=== PATIENT | female | born 1990 | race Caucasian/White ===

== ENCOUNTER 2019-12-18 16:15 | Outpatient (CLI) | payer MEDICAID ==
[~2019-12-18] VITALS: Ht 167.7 cm; Wt 95.7 kg
--- NOTE | 2019-12-18 16:15 | NUR ---
JASPREET GÓMEZ presented to unit via ambulation from home, accompanied by s/o, with c/o CRAMPING/ABD PAIN. JASPREET GÓMEZ weighed, gowned, voided, and to bed. EFHM and TOCO applied, VS taken. JASPREET GÓMEZ oriented to bed controls, call light, TV, heat, and A/C controls.
--- NOTE | 2019-12-18 16:18 | NUR ---
Dr henao at bedside. reviewing patient c/o and concerns. new orders received.
[2019-12-18 16:20] VITALS: BP 129/87
[2019-12-18] MEDS ORDERED: NS IV 1000 ML 1,000 ML IV SCH (16:45)
[2019-12-18 17:14] LABS: AMPHETAMINE SCREEN, URINE NEGATIVE (NEGATIVE); BARBITURATE SCREEN URINE NEGATIVE (NEGATIVE); BENZODIAZEPINES SCREEN URINE NEGATIVE (NEGATIVE); CANNABINOID SCREEN, URINE NEGATIVE (NEGATIVE); COCAINE SCREEN URINE NEGATIVE (NEGATIVE); METHADONE STAT NEGATIVE (NEGATIVE); METHAMPHETAMINE SCREEN URINE S NEGATIVE (NEGATIVE); OPIATE SCREEN URINE NEGATIVE (NEGATIVE); OXYCODONE STAT NEGATIVE (NEGATIVE); PROPOXYPHENE STAT NEGATIVE (NEGATIVE); TRICYCLIC ANTIDEPRESSANTS SCRE NEGATIVE (NEGATIVE)
--- NOTE | 2019-12-18 17:45 | NUR ---
dr henao called update given on patient status.
--- NOTE | 2019-12-18 18:05 | NUR ---
assisted up to bathroom. s/o at bedside. standby assistance. denies further need.
--- NOTE | 2019-12-18 19:05 | NUR ---
IV fluids completed. heplocked.
--- NOTE | 2019-12-18 19:08 | NUR ---
report to next shift.
--- NOTE | 2019-12-18 19:10 | NUR ---
efm removed. reviewed plan for d/c. verbalized understanding.
--- NOTE | 2019-12-18 19:15 | NUR ---
discharge papers explained and pt verbalized understanding. pt feeling better and denies pain.
[2019-12-18 19:18] VITALS: BP 129/87
--- NOTE | 2019-12-18 19:18 | NUR ---
pt ambulated off unit at this time with s.o.
--- NOTE | 2019-12-18 20:20 | History & Physical-OB/GYN ---
History of Present Illness History of Present Illness Reason for visit/HPI Ms. Benites A1 at 25 weeks gestation presents to the hospital secondary to vaginal cramping--thinks that she may be dehydrated. Date of Admission December 18, 2019 Date Seen by a Provider: Dec 18, 2019 Time Seen by a Provider: 16:20 I consulted on this patient on 12/18/19 20:15 Attending Physician Yury Casanova DO Admitting Physician Rommel Castro DO Consult Allergies and Home Medications Allergies Coded Allergies: No Known Drug Allergies (Unverified , 12/18/19) Home Medications No Active Prescriptions or Reported Meds Patient Home Medication List Home Medication List Reviewed: Yes Past Qtaklun-Lhkfie-Ejljln Hx Patient Social History Number of Children: 2 Number of living children: 2 Alcohol Use: Denies Use Recreational Drug Use: No Smoking Status: Current Everyday Smoker Type Used: Cigarettes 2nd Hand Smoke Exposure: Yes Recent Foreign Travel: No Contact w/other who traveled: No Recent Infectious Disease Expo: No Immunizations Up To Date Date of Influenza Vaccine: Oct 18, 2019 Reproductive System Expected Date of Delivery: March 31, 2020 Hx : 4 Hx Para: 2 Hx Total # of Abortions (Spona: 1 Review of Systems Constitutional: see HPI Physical Exam Physical Exam Vital Signs Vital Signs Date Time Temp Pulse Resp B/P (MAP) Pulse Ox O2 Delivery O2 Flow Rate FiO2 12/18/19 19:18 36.8 82 20 129/87 99 Room Air 100.00 12/18/19 16:20 36.8 82 20 99 Room Air Capillary Refill : NONE Labs Laboratory Tests 12/18/19 15:30: Urine Opiates Screen NEGATIVE, Urine Oxycodone Screen NEGATIVE, Urine Methadone Screen NEGATIVE, Urine Propoxyphene Screen NEGATIVE, Urine Barbiturates Screen NEGATIVE, Ur Tricyclic Antidepressants Screen NEGATIVE, Urine Phencyclidine Screen NEGATIVE, Urine Amphetamines Screen NEGATIVE, Urine Methamphetamines Screen NEGATIVE, Urine Benzodiazepines Screen NEGATIVE, Urine Cocaine Screen NEGATIVE, Urine Cannabinoids Screen NEGATIVE General Appearance: No Apparent Distress, WD/WN Respiratory: Lungs Clear Cardiovascular: Regular Rate, Rhythm, No Murmur Abdominal: normal bowel sounds, non tender, distended (Gravid) Extremity: Normal Inspection Assessment/Plan Assessment and Plan Assessment: Intrauterine at 25 weeks 2. Uterine Cramping Plan: External Monitoring with Observation. IV hydration. Discharge to home Admission Diagnosis Admission Status: Observation SEALS,YURY E DO Dec 18, 2019 20:20
== END 2019-12-18 19:17 | disposition home or self-care (01) ==
LOC: LDRP 16:15 → WSo 16:15
PROVIDERS: ATTEND Obstetrics & Gynecology
DX: O26.92 Pregnancy related conditions, unspecified, second trimester (principal); Z3A.25 25 weeks gestation of pregnancy
CPT/HCPCS: 80306; 96360; 96361; 99213

== ENCOUNTER 2019-12-20 15:26 | Emergency (ER) | payer MEDICAID ==
[~2019-12-20] VITALS: Ht 167 cm; Wt 96.7 kg
[2019-12-20] MEDS ORDERED: BP MED (15:39)
--- NOTE | 2019-12-20 16:12 | ED Cough/URI ---
General Chief Complaint: Cough/Cold/Flu Symptoms Stated Complaint: SINUS INFECTION Nursing Triage Note: THINKS SHE HAS A RIGHT SIDED SINUS INFECTION. PT IS 25 WEEKS GESTATION AND WAS UNABLE TO GET INTO HER DR. Sepsis Screen: No Definite Risk Source: patient Exam Limitations: no limitations History of Present Illness Date Seen by Provider: Dec 20, 2019 Time Seen by Provider: 16:11 Initial Comments To ER with left-sided sinus infection. She's been sick for about 2 weeks with nasal congestion cough sore throat. No fevers. She has some left-sided maxillary tenderness to palpation for the past few days. She is 27 weeks . Timing/Duration: constant Severity/Quality: moderate Associated Symptoms: cough, sinus infection, sore throat Allergies and Home Medications Allergies Coded Allergies: No Known Drug Allergies (Unverified , 12/18/19) Patient Home Medication List Home Medication List Reviewed: Yes Review of Systems Review of Systems Constitutional: see HPI EENTM: see HPI, nose congestion, throat pain Respiratory: see HPI, cough Cardiovascular: no symptoms reported Genitourinary: no symptoms reported Musculoskeletal: no symptoms reported Skin: no symptoms reported Psychiatric/Neurological: No Symptoms Reported Hematologic/Lymphatic: No Symptoms Reported Immunological/Allergic: no symptoms reported Past Xtvjhib-Cgwbay-Fopqkb Hx Patient Social History Type Used: Cigarettes 2nd Hand Smoke Exposure: Yes Recent Foreign Travel: No Contact w/Someone Who Travel: No Recent Infectious Disease Expo: No Immunizations Up To Date Date of Influenza Vaccine: Oct 18, 2019 Physical Exam Vital Signs - First Documented 12/20/19 15:36 Temp 37.1 Pulse 89 Resp 16 B/P (MAP) 136/84 (101) Pulse Ox 98 O2 Delivery Room Air Capillary Refill : Less Than 3 Seconds Height: '" Weight: lbs. oz. kg; 34.00 BMI Method: General Appearance: WD/WN, no apparent distress Eyes: Bilateral Eye Normal Inspection, Bilateral Eye PERRL, Bilateral Eye EOMI HEENT: PERRL/EOMI, normal ENT inspection Respiratory: no respiratory distress, no accessory muscle use Gastrointestinal: normal bowel sounds, non tender, soft Neurologic/Psychiatric: alert, normal mood/affect, oriented x 3 Skin: normal color, warm/dry Progress/Results/Core Measures Suspected Sepsis Recent Fever Within 48 Hours: No Infection Criteria Present: Suspected New Infection New/Unexplained Altered Menta: No Sepsis Screen: No Definite Risk SIRS Temperature: Pulse: 89 Respiratory Rate: 16 Blood Pressure 136 /84 Mean: 101 Results/Orders Vital Signs/I&O 12/20/19 15:36 Temp 37.1 Pulse 89 Resp 16 B/P (MAP) 136/84 (101) Pulse Ox 98 O2 Delivery Room Air Capillary Refill : Less Than 3 Seconds Blood Pressure Mean: 101 Departure Impression Primary Impression: Maxillary sinusitis Qualified Codes: J01.00 - Acute maxillary sinusitis, unspecified Disposition: HOME, SELF-CARE Condition: Stable Departure-Patient Inst. Decision time for Depature: 16:13 Referrals: REBECCA GARCIA DO (PCP/Family) Primary Care Physician Patient Instructions: Sinusitis, Adult (DC) Add. Discharge Instructions: 1. Antibiotics as directed 2. Follow-up with your doctor next week 3. All discharge instructions reviewed with patient and/or family. Voiced understanding. Scripts Acetaminophen with Codeine (Tylenol with Codeine #3 Tablet) 1 Each Tablet 1 EACH PO Q4H PRN for PAIN-MODERATE (5-7) for 7 Days, #10 TAB Prov: BRIDGETTE NEELY APRN 12/20/19 Amoxicillin/Potassium Clav (Augmentin 875-125 Tablet) 1 Each Tablet 1 EACH PO BID, #14 TAB 0 Refills Prov: BRIDGETTE NEELY APRN 12/20/19 BRIDGETTE NEELY APRN Dec 20, 2019 16:12
[2019-12-20] MEDS ORDERED: ACET-789 PO (16:14)
[2019-12-20] MEDS ORDERED: AMOX-358 PO (16:14)
[2019-12-20 16:18] VITALS: BP 136/84
== END 2019-12-20 16:20 | disposition home or self-care (01) ==
LOC: EDUNIT# 15:26 → ER 15:27
DX: O99.512 Diseases of the respiratory system complicating pregnancy, second trimester (principal); J32.0 Chronic maxillary sinusitis; Z3A.27 27 weeks gestation of pregnancy; Z77.22 Contact with and (suspected) exposure to environmental tobacco smoke (acute) (chronic)
CPT/HCPCS: 99282

== ENCOUNTER 2020-01-26 18:57 | Outpatient (CLI) | payer MEDICAID ==
[~2020-01-26] VITALS: Ht 167 cm; Wt 98.0 kg
--- NOTE | 2020-01-26 18:45 | NUR ---
JASPREET GÓMEZ presented to unit via from ED, accompanied by , 31 0/7 gest with c/o ELEV BP. JASPREET GÓMEZ weighed, gowned, voided, and to bed. EFHM and TOCO applied, VS taken. JASPREET GÓMEZ oriented to bed controls, call light, TV, heat, and A/C controls.
[~2020-01-26 18:57] MED LIST: ACET-789 PO; AMOX-358 PO; BP MED
[2020-01-26 19:15] VITALS: BP 136/87
[2020-01-26 19:22] VITALS: BP 136/87
[2020-01-26] MEDS ORDERED: PREN-102 PO (19:22)
[2020-01-26 19:25] LABS: BILIRUBIN,URINE NEGATIVE (NEGATIVE); CLARITY,URINE CLEAR; COLOR,URINE YELLOW; GLUCOSE, URINE (UA) NEGATIVE (NEGATIVE); KETONES,URINE 3+ (NEGATIVE); LEUKOCYTE ESTERASE ,URINE NEGATIVE (NEGATIVE); NITRITE,URINE NEGATIVE (NEGATIVE); PH,URINE 5.5 (5-9); PROTEIN,URINE NEGATIVE (NEGATIVE)
[2020-01-26 19:32] LABS: BACTERIA,URINE FEW /HPF
[2020-01-26 19:40] VITALS: BP 120/75
[2020-01-26] MEDS ORDERED: ACETAMINOPHEN 500 MG TAB (TYLENOL) ONE (19:43)
[2020-01-26] MEDS ORDERED: ACETAMINOPHEN 500 MG TAB (TYLENOL) PO ONE (19:45)
[2020-01-26 20:00] VITALS: BP 114/70
[2020-01-26 20:09] LABS: BASOPHILS % (AUTO) 0 % (0-10); EOSINOPHILS # (AUTO) 0.1 10^3/uL (0.0-0.3); EOSINOPHILS % (AUTO) 1 % (0-10); HEMATOCRIT 37 % (35-52); HEMOGLOBIN 13.1 G/DL (11.5-16.0); LYMPHOCYTES % (AUTO) 24 % (12-44); MEAN CORPUSCULAR HEMOGLOBIN 31 PG (25-34); MEAN CORPUSCULAR HGB CONC 35 G/DL (32-36); MEAN CORPUSCULAR VOLUME 89 FL (80-99); MONOCYTES # (AUTO) 0.6 X 10^3 (0.0-1.0); MONOCYTES % (AUTO) 5 % (0-12); NEUTROPHILS # (AUTO) 9.1 X 10^3 (1.8-7.8); NEUTROPHILS % (AUTO) 71 % (42-75); PLATELET COUNT 231 10^3/uL (130-400); RED CELL DISTRIBUTION WIDTH 13.1 % (10.0-14.5); WHITE BLOOD COUNT 12.8 10^3/uL (4.3-11.0)
[2020-01-26 20:10] VITALS: BP 112/74
[2020-01-26 20:23] LABS: ALANINE AMINOTRANSFERASE 7 U/L (0-55); ALBUMIN 3.3 GM/DL (3.2-4.5); ALKALINE PHOSPHATASE 81 U/L (40-136); BILIRUBIN,TOTAL 0.3 MG/DL (0.1-1.0); BUN/CREATININE RATIO 14; CALCIUM 8.9 MG/DL (8.5-10.1); CARBON DIOXIDE 18 MMOL/L (21-32); CHLORIDE 107 MMOL/L (98-107); CREATININE SERUM 0.64 MG/DL (0.60-1.30); GFR ESTIMATED > 60; GLUCOSE 92 MG/DL (70-105); POTASSIUM 3.6 MMOL/L (3.6-5.0); SODIUM 137 MMOL/L (135-145); TOTAL PROTEIN 6.1 GM/DL (6.4-8.2); URIC ACID 5.5 MG/DL (2.6-7.2)
[2020-01-26 20:38] VITALS: BP 109/68
--- NOTE | 2020-01-26 20:45 | NUR ---
Discharge packet given and explained, understanding voiced per pt, denies needs or concerns. no ss distress, pt ambulatory off unit at this time accompanied by so.
--- NOTE | 2020-01-29 08:13 | Physician Query-Final Dx ---
Clinic Account Progress/Dx Physician Query: Please give diagnosis Please include # weeks gestation Date of Service Jan 26, 2020 at 18:57 MICHAEL LOPEZ Jan 29, 2020 08:13
== END 2020-01-26 20:45 | disposition home or self-care (01) ==
LOC: WSo 18:57
PROVIDERS: ATTEND Obstetrics & Gynecology
DX: O26.893 Other specified pregnancy related conditions, third trimester (principal); R03.0 Elevated blood-pressure reading, without diagnosis of hypertension; Z3A.31 31 weeks gestation of pregnancy
CPT/HCPCS: 36415; 80053; 81000; 82570; 83615; 84156; 84550; 85025; 99213

== ENCOUNTER 2020-03-17 18:51 | Inpatient (IN) | payer MEDICAID ==
[~2020-03-17] VITALS: Ht 167 cm; Wt 101.3 kg
[2020-03-17] VITALS (7 sets, daily range): BP systolic 118–146; BP diastolic 69–88
[~2020-03-17 18:51] MED LIST changes: +PREN-102 PO
--- OUTSIDE RECORDS SUMMARY | 2020-03-17 18:59 | XMS REPORT | Continuity of Care Document ---
Author Organization Unknown Address Unknown Phone Unavailable Allergies Active Description Code Type Severity Reaction Onset Reported/Identified Relationship to Patient Clinical Status Yes No Known Drug Allergies [id number] Drug Allergy Unknown N/A 12/18/2019 Medications There is no data. Problems Date Dx Coded Attending Type Code Diagnosis Diagnosed By 12/18/2019 SEALS DO, YOKO E Ot O26.9 2 RELATED CONDITIONS, UNSPECIFIE 12/18/2019 SEALS DO, YOKO E Ot Z3A.2 5 25 WEEKS GESTATION OF 12/20/2019 BRIDGETTE NEELY APRN Ot J32 .0 CHRONIC MAXILLARY SINUSITIS 12/20/2019 BRIDGETTE NEELY APRN Ot O99.512 DISEASES OF THE RESP SYS COMP , 12/20/2019 BRIDGETTE NEELY APRN Ot Z3A.27 27 WEEKS GESTATION OF 12/20/2019 BRIDGETTE NEELY APRN Ot Z77.22 CNTCT W AND EXPSR TO ENVIRON TOBACCO SMO 12/22/2019 BRIDGETTE NEELY APRN Ot J32 .0 CHRONIC MAXILLARY SINUSITIS 12/22/2019 BRIDGETTE NEELY APRN Ot O99.512 DISEASES OF THE RESP SYS COMP , 12/22/2019 BRIDGETTE NEELY APRN Ot Z3A.27 27 WEEKS GESTATION OF 12/22/2019 BRIDGETTE NEELY APRN Ot Z77.22 CNTCT W AND EXPSR TO ENVIRON TOBACCO SMO 12/22/2019 SEALS DO, YOKO E Ot O26.9 2 RELATED CONDITIONS, UNSPECIFIE 12/22/2019 SEALS DO, YOKO E Ot Z3A.2 5 25 WEEKS GESTATION OF 12/26/2019 BRIDGETTE NEELY APRN Ot J32 .0 CHRONIC MAXILLARY SINUSITIS 12/26/2019 BRIDGETTE NEELY APRN Ot O99.512 DISEASES OF THE RESP SYS COMP , 12/26/2019 BRIDGETTE NEELY APRN Ot Z3A.27 27 WEEKS GESTATION OF 12/26/2019 BRIDGETTE NEELY APRN Ot Z77.22 CNTCT W AND EXPSR TO ENVIRON TOBACCO SMO 01/26/2020 FENECH DO, REBECCA Mathew Ot O26.893 OTH RELATED CONDITIONS, THIRD 01/26/2020 FENECH DO, REBECCA Mathew Ot R03.0 ELEVATED BLOOD-PRESSURE READING, W/O GLORY 01/26/2020 FENECH DO, REBECCA Mathew Ot Z3A.31 31 WEEKS GESTATION OF 01/30/2020 FENECH DO, REBECCA Mathew Ot O26.893 OTH RELATED CONDITIONS, THIRD 01/30/2020 FENECH DO, REBECCA S Ot R03.0 ELEVATED BLOOD-PRESSURE READING, W/O GLORY 01/30/2020 FENECH DO, REBECCA Mathew Ot Z3A.31 31 WEEKS GESTATION OF 02/03/2020 FENECH DO, REBECCA Mathew Ot O26.893 OTH RELATED CONDITIONS, THIRD 02/03/2020 FENECH DO, REBECCA Mathew Ot R03.0 ELEVATED BLOOD-PRESSURE READING, W/O GLORY 02/03/2020 FENECH DO, REBECCA Mathew Ot Z3A.31 31 WEEKS GESTATION OF Procedures There is no data. Results Test Result Range Urine drug screening test - 12/18/19 15: 30 Urine phencyclidine detection by screening method NEGATIVE NEGATIVE Urine benzodiazepines detection by screening method NEGATIVE NEGATIVE Urine cocaine detection NEGATIVE NEGATI VE Urine amphetamines detection by screening method N EGATIVE NEGATIVE Urine methamphetamine detection by screening method NEGATIVE NEGATIVE Urine cannabinoids detection by screening method N EGATIVE NEGATIVE Urine opiates detection by screening method NEGATI VE NEGATIVE Urine barbiturates detection NEGATIVE N EGATIVE Screening urine tricyclic antidepressants detection NEGATIVE NEGATIVE Urine methadone detection by screening method NEGA TIVE NEGATIVE Urine oxycodone detection NEGATIVE NEGA TIVE Urine propoxyphene detection NEGATIVE N EGATIVE Complete urinalysis with reflex to cultu re - 01/26/20 19:00 Urine color determination YELLOW NRG Urine clarity determination CLEAR NR G Urine pH measurement by test strip 5.5 5-9 Specific gravity of urine by test strip >= 1.016-1.022 Urine protein assay by test strip, semi-quantitative NEGATIVE NEGATIVE Urine glucose detection by automated test strip NE GATIVE NEGATIVE Erythrocytes detection in urine sediment by light micr oscopy NEGATIVE NEGATIVE Urine ketones detection by automated test strip 3+ NEGATIVE Urine nitrite detection by test strip NEGATIVE NEGATIVE Urine total bilirubin detection by test strip NEGA TIVE NEGATIVE Urine urobilinogen measurement by automated test strip (mass/volume) 0.2 mg/dL < = 1.0 Urine leukocyte esterase detection by dipstick NEG ATIVE NEGATIVE Automated urine sediment erythrocyte cou nt by microscopy (number/high power field) NONE NRG Automated urine sediment leukocyte count by microscopy (number/high power field) NONE NRG Bacteria detection in urine sediment by light microsco py FEW NRG Squamous epithelial cells detection in u rine sediment by light microscopy 10-25 NRG Crystals detection in urine sediment by light microsco py NONE NRG Casts detection in urine sediment by light microscopy NONE NRG Mucus detection in urine sediment by light microscopy SMALL NRG Complete urinalysis with reflex to culture NO NRG Urine protein/creatinine mass ratio - 19:00 Urine protein measurement (mass/volume) 17 mg/dL 6-12 Urine creatinine measurement (mass/volume) 240 mg/ dL 30-125 Urine protein/creatinine mass ratio 0.07 NRG Complete blood count (CBC) with automate d white blood cell (WBC) differential - 01/26/20 19:57 Blood leukocytes automated count (number/volume) 12.8 10*3/uL 4.3-11.0 Blood erythrocytes automated count (number/volume) 4.17 10*6/uL 4.35-5.85 Venous blood hemoglobin measurement (mass/volume) 13.1 g/dL 11.5-16.0 Blood hematocrit (volume fraction) 37 % 35-52 Automated erythrocyte mean corpuscular volume 89 [ foz_us] 80-99 Automated erythrocyte mean corpuscular h emoglobin (mass per erythrocyte) 31 pg 25-34 Automated erythrocyte mean corpuscular h emoglobin concentration measurement (mass/volume) 35 g/dL 32-36 Automated erythrocyte distribution width ratio 13. 1 % 10.0- 14.5 Automated blood platelet count (count/volume) 231 10*3/uL 130-400 Automated blood platelet mean volume measurement 10.0 [foz_us] 7.4-10.4 Automated blood neutrophils/100 leukocytes 71 % 42-75 Automated blood lymphocytes/100 leukocytes 24 % 12-44 Blood monocytes/100 leukocytes 5 % 0-12 Automated blood eosinophils/100 leukocytes 1 % 0-10 Automated blood basophils/100 leukocytes 0 % 0-10 Blood neutrophils automated count (number/volume) 9.1 10*3 1.8-7.8 Blood lymphocytes automated count (number/volume) 3.0 10*3 1.0-4.0 Blood monocytes automated count (number/volume) 0. 6 10*3 0.0-1.0 Automated eosinophil count 0.1 10*3/uL 0 .0-0.3 Automated blood basophil count (count/volume) 0.0 10*3/uL 0.0-0.1 Comprehensive metabolic panel - 01/26/20 19:57 Serum or plasma sodium measurement (moles/volume) 137 mmol/L 135-145 Serum or plasma potassium measurement (moles/volume) 3.6 mmol/L 3.6-5.0 Serum or plasma chloride measurement (moles/volume) 107 mmol/L 98-107 Carbon dioxide 18 mmol/L 21-32 Serum or plasma anion gap determination (moles/volume) 12 mmol/L 5-14 Serum or plasma urea nitrogen measurement (mass/volume ) 9 mg/dL 7-18 Serum or plasma creatinine measurement (mass/volume) 0.64 mg/dL 0.60-1.30 Serum or plasma urea nitrogen/creatinine mass ratio 14 NRG Serum or plasma creatinine measurement w ith calculation of estimated glomerular filtration rate > NRG Serum or plasma glucose measurement (mass/volume) 92 mg/dL 70-105 Serum or plasma calcium measurement (mass/volume) 8.9 mg/dL 8.5-10.1 Serum or plasma total bilirubin measurement (mass/volu me) 0.3 mg/dL 0.1-1.0 Serum or plasma alkaline phosphatase danis surement (enzymatic activity/volume) 81 U/L 40-136 Serum or plasma aspartate aminotransfera se measurement (enzymatic activity/volume) 14 U/L 5-34 Serum or plasma alanine aminotransferase measurement (enzymatic activity/volume) 7 U/L 0-55 Serum or plasma protein measurement (mass/volume) 6.1 g/dL 6.4-8.2 Serum or plasma albumin measurement (mass/volume) 3.3 g/dL 3.2-4.5 CALCIUM CORRECTED 9.5 mg/dL 8.5-10.1 Serum or plasma uric acid measurement (m ass/volume) - 01/26/20 19:57 Serum or plasma uric acid measurement (mass/volume) 5.5 mg/dL 2.6-7.2 Serum ragweed IgE antibody assay - 01/26 19:57 Serum ragweed IgE antibody assay 232 U/L 125-220 Encounters ACCT No. Visit Date/Time Discharge Status Pt. Type Provider Facility Loc./Unit Complaint [id number] 01/26/2020 18:57:00 20:45:00 DIS Outpatient REBECCA GARCIA DO [facility] WSo ELEV BP [id number] 12/20/2019 15:27:00 16:20:00 DIS Emergency BRIDGETTE NEELY APRN [facility] ER SINUS INFECTION [id number] 12/18/2019 16:15:00 19:17:00 DIS Outpatient YOKO VILLASENOR DO [facility] CRAMPING/ABD PAIN [id number] 03/17/2020 19:00:00 P EN Preadmit REBECCA GARCIA DO INDUCTION
--- NOTE | 2020-03-17 19:00 | NUR ---
JASPREET GÓMEZ presented to unit via ambulatory from ED, accompanied by , with c/o INDUCTION 38 01/05. JASPREET GÓMEZ weighed, gowned, voided, and to bed. EFHM and TOCO applied, VS taken. JASPREET GÓMEZ oriented to bed controls, call light, TV, heat, and A/C controls.
[2020-03-17] MEDS ORDERED: NS (IVPB) 250 ML ONE (19:59)
[2020-03-17] MEDS ORDERED: MISOPROSTOL 100 MCG (CYTOTEC) TAB PO ONE (20:00)
[2020-03-17] MEDS: D5 LR IV SOLUTION 1,000 ML IV SCH (20:25)
[2020-03-17] MEDS ORDERED: NS (IVPB) 250 ML IV ONE (20:30)
[2020-03-17 21:38] LABS: BASOPHILS % (AUTO) 0 % (0-10); EOSINOPHILS # (AUTO) 0.1 10^3/uL (0.0-0.3); EOSINOPHILS % (AUTO) 1 % (0-10); HEMATOCRIT 39 % (35-52); HEMOGLOBIN 13.9 G/DL (11.5-16.0); LYMPHOCYTES # (AUTO) 3.5 X 10^3 (1.0-4.0); LYMPHOCYTES % (AUTO) 27 % (12-44); MEAN CORPUSCULAR HEMOGLOBIN 31 PG (25-34); MEAN CORPUSCULAR HGB CONC 36 G/DL (32-36); MEAN CORPUSCULAR VOLUME 89 FL (80-99); MEAN PLATELET VOLUME 10.4 FL (7.4-10.4); MONOCYTES # (AUTO) 0.7 X 10^3 (0.0-1.0); MONOCYTES % (AUTO) 6 % (0-12); NEUTROPHILS # (AUTO) 8.4 X 10^3 (1.8-7.8); NEUTROPHILS % (AUTO) 66 % (42-75); PLATELET COUNT 232 10^3/uL (130-400); RED CELL DISTRIBUTION WIDTH 13.6 % (10.0-14.5); WHITE BLOOD COUNT 12.6 10^3/uL (4.3-11.0)
[2020-03-18] VITALS (77 sets, daily range): BP systolic 80–140; BP diastolic 46–89
[2020-03-18] MEDS ORDERED: MISOPROSTOL 100 MCG (CYTOTEC) TAB PO SCH
[2020-03-18] MEDS: D5 LR IV SOLUTION 1,000 ML IV SCH ×2 (04:45→12:22)
[2020-03-18] MEDS ORDERED: OXYTOCIN PRE-MIX DRIP 500 ML IV ONE (06:46)
[2020-03-18] MEDS ORDERED: OXYTOCIN PRE-MIX DRIP 500 ML IV SCH ×2 (06:51→16:53)
--- NOTE | 2020-03-18 08:27 | History & Physical-OB ---
OB - Chief Complaint & HPI Date/Time Date of Admission: Date of Admission: Mar 17, 2020 at 18:51 Date seen by a Provider: Mar 18, 2020 Time Seen by a Provider: 08:00 Chief Complaint/History OB-Reason for Admission/Chief: Induction of Labor Hx : 3 Hx Para: 2 Expected Date of Delivery: March 29, 2020 Gestational Age in Weeks: 38 Gestational Age in Days: 2 Admission Nurse Assessment Rev: Yes History of Labs GBS neg Allergies and Home Medications Allergies Coded Allergies: No Known Drug Allergies (Unverified , 12/18/19) Patient Home Medication List Home Medication List Reviewed: Yes OB - History Hx of Present Care: Yes Ultrasounds: Normal mid trimester US, Abnormal US findings (Polyhydramnios noted on last week appointment, US done for Size>Dates) Obstetrical Complications: None Medical Complications: None Delivery History Adverse Rxn to Tranfusion: No Patient Past Medical History /a Social History/Family History Recent Infectious Disease Expo: No Alcohol Use: Denies Use Recreational Drug Use: No 2nd Hand Smoke Exposure: No Immunizations Date of Influenza Vaccine: Aug 29, 2019 OB - Admission Exam Physical Exam Vitals: Vital Signs 03/17/20 03/18/20 03/18/20 21:37 04:00 07:31 Temp 36.3 Pulse 67 Resp 18 B/P (MAP) 104/69 (81) Pulse Ox 97 O2 Delivery Room Air HEENT: NCAT Heart: Rhythm Normal Lungs: Clear Abdomen: Gravid Extremities: Normal Reflexes: Normal Cervical Dilatation: 3cm Effacement: 75% Station: -1 Heart Rate: 130's Accelerations: Accelerations Present Decelerations: No Decelerations Short Term Variability: Present Assisted Variability: Average (6-25) Contractions on Admission: 6-10 Minutes Apart Peters Scoring Tool (Modified) Dilation (cm): 3-4cm (2) Effacement (%): 51-79% (2) Descent/Station: -1,0 (2) Cervix Consistency: Soft (2) Cervix Position: Anterior (2) Add 1 point for: Each previous vaginal delivery (1) Peters Score: 12 Labs Laboratory Tests Test 03/17/20 21:25 Range/Units White Blood Count 12.6 H 4.3-11.0 10^3/uL Red Blood Count 4.42 4.35-5.85 10^6/uL Hemoglobin 13.9 11.5-16.0 G/DL Hematocrit 39 35-52 % Mean Corpuscular Volume 89 80-99 FL Mean Corpuscular Hemoglobin 31 25-34 PG Mean Corpuscular Hemoglobin Concent 36 32-36 G/DL Red Cell Distribution Width 13.6 10.0-14.5 % Platelet Count 232 130-400 10^3/uL Mean Platelet Volume 10.4 7.4-10.4 FL Neutrophils (%) (Auto) 66 42-75 % Lymphocytes (%) (Auto) 27 12-44 % Monocytes (%) (Auto) 6 0-12 % Eosinophils (%) (Auto) 1 0-10 % Basophils (%) (Auto) 0 0-10 % Neutrophils # (Auto) 8.4 H 1.8-7.8 X 10^3 Lymphocytes # (Auto) 3.5 1.0-4.0 X 10^3 Monocytes # (Auto) 0.7 0.0-1.0 X 10^3 Eosinophils # (Auto) 0.1 0.0-0.3 10^3/uL Basophils # (Auto) 0.0 0.0-0.1 10^3/uL OB - Assessment/Plan/Diagnosis Assessment Assessment: induction of labor Admission Dx 29 yo @ 38 weeks Polyhydramnios GBS neg Admission Status: Inpatient Order (span 2 midnights) Reason for Inpatient Admission: Induction of labor at term Plan Plan: Induction Induction Method: per Misoprostol Protocol REBECCA GARCIA DO Mar 18, 2020 08:26
[2020-03-18] MEDS ORDERED: HYDROmorphone 2 MG/ML VIAL (DILAUDID) IV ONE (08:30)
[2020-03-18] MEDS ORDERED: ONDANSETRON 4 MG/2 ML (SDV) Z0FRAN ONE (09:47)
[2020-03-18] MEDS ORDERED: ONDANSETRON 4 MG/2 ML (SDV) Z0FRAN IVP PRN (10:00)
[2020-03-18] MEDS ORDERED: fentaNYL 2 mcg/ml BUPIVA 0.125 100 ML ONE (11:53)
--- NOTE | 2020-03-18 12:10 | NUR ---
ANESTHESIA NOTIFIED OF PT'S DESIRE FOR EPIDURAL PLACEMENT.
[2020-03-18] MEDS ORDERED: BUPIVACAINE 0.25% 30 ML (SENSORCAINE) VIAL ONE (12:13)
[2020-03-18] MEDS ORDERED: fentaNYL INJECTION 100 MCG/2 ML AMP ONE (12:14)
--- NOTE | 2020-03-18 12:23 | NUR ---
1223 Courtney SANDERS CRNA here for epidural placement. Procedure explained, consent reviewed and signed by anesthesia. Questions answered to patient's satisfaction. Time out taken to verify correct patient/procedure. 1228 Patient up to side of bed, assisted into sitting position. 1230 Betadine prep done x3 and sterile drape applied. 1231 Local done, see anesthesia record. 1236 Test dose given, see anesthesia record for drug and dosage. Epidural catheter secured in place. Epidural placement complete. 1241 Assisted back into bed, monitors adjusted. Epidural dosed, see anesthesia record. Epidural of Sufenta/Bupvicaine @12cc/hr stated per pump. Patient tolerated procedure well.
[2020-03-18] MEDS ORDERED: LACTATED RINGERS 1,000 ML IV ONE (12:51)
[2020-03-18] MEDS ORDERED: NALOXONE 0.4 MG/ML 1 ML (NARCAN) VIAL IV PRN (13:00)
[2020-03-18] MEDS ORDERED: CATHETER FLUSH 10 ML SYR IV PRN (13:00)
[2020-03-18] MEDS ORDERED: EPIDURAL (fentaNYL 2 MCG/ML BUPIVA 0.125%)100 ML BAG EPI SCH (13:00)
[2020-03-18] MEDS ORDERED: LIDOCAINE/EPI 2% 1:200,00 (XYLOCAINE) 20 ML VIAL ONE (16:11)
--- NOTE | 2020-03-18 16:59 | OB Labor & Delivery Record ---
L&D History Date of Service Date of Service: Mar 18, 2020 History Expected Date of Delivery: March 29, 2020 Gestational Age in Weeks: 38 Hx : 3 Hx Para: 2 Complications Events: Polyhydramnios, Routine care Operative Indications (Cesarea: N/A-Vaginal Delivery Intrapartal Events: None L&D Stage1 Stage One Onset of Labor - Date: Mar 18, 2020 Monitors and Tracing Monitor Mode: External Heart Rate: 125 Monitor Accelerations: Uniform Monitor Decelerations: Variable Station: -1 Shelter Variability: Average (6-10) Short Term Variability: Present Presentation: Vertex Vital Signs VS - Last 72 Hours, by Label 03/17/20 03/17/20 03/17/20 03/17/20 19:30 21:30 21:37 22:00 Temp 36.5 36.5 Pulse 95 68 95 73 Resp 18 18 18 18 B/P (MAP) 126/88 (101) 121/79 (93) 121/77 (92) Pulse Ox 97 O2 Delivery Room Air 03/17/20 03/17/20 03/17/20 03/18/20 22:30 23:00 23:30 00:00 Temp 36.5 Pulse 67 75 74 74 Resp 18 18 18 18 B/P (MAP) 122/69 (86) 146/81 (102) 118/72 (87) 93/53 (66) 03/18/20 03/18/20 03/18/20 03/18/20 00:30 01:00 01:30 02:00 Pulse 80 72 74 65 Resp 18 18 18 18 B/P (MAP) 102/52 (69) 102/53 (69) 113/79 (90) 109/73 (85) 03/18/20 03/18/20 03/18/20 03/18/20 02:30 03:00 03:30 04:00 Temp 36.3 Pulse 65 64 75 73 Resp 18 18 18 18 B/P (MAP) 122/63 (82) 117/72 (87) 113/81 (92) 95/53 (67) 03/18/20 03/18/20 03/18/20 03/18/20 04:30 05:00 05:30 06:00 Pulse 72 67 68 61 Resp 18 18 18 18 B/P (MAP) 122/71 (88) 115/74 (88) 116/76 (89) 97/55 (69) 03/18/20 03/18/20 03/18/20 03/18/20 06:30 07:00 07:17 07:31 Pulse 61 66 73 67 Resp 18 18 18 18 B/P (MAP) 109/54 (72) 110/55 (73) 103/54 (70) 104/69 (81) O2 Delivery Room Air Room Air 03/18/20 03/18/20 03/18/20 03/18/20 07:47 07:57 08:02 08:16 Temp 36.5 Pulse 59 69 67 Resp 18 18 18 B/P (MAP) 109/61 (77) 122/73 (89) 123/73 (90) O2 Delivery Room Air Room Air Room Air 03/18/20 03/18/20 03/18/20 03/18/20 08:32 08:47 09:02 09:17 Pulse 73 68 64 64 Resp 18 18 18 18 B/P (MAP) 123/79 (94) 129/85 (100) 129/68 (88) 125/82 (96) O2 Delivery Room Air Room Air Room Air Room Air 03/18/20 03/18/20 03/18/20 03/18/20 09:32 09:46 10:02 10:18 Pulse 65 67 66 68 Resp 18 18 18 18 B/P (MAP) 131/76 (94) 126/82 (97) 130/69 (89) 120/75 (90) O2 Delivery Room Air Room Air Room Air Room Air 03/18/20 03/18/20 03/18/20 03/18/20 10:31 10:43 10:47 11:02 Temp 36.6 Pulse 60 60 57 Resp 18 18 18 B/P (MAP) 120/78 (92) 131/75 (93) 120/77 (91) O2 Delivery Room Air Room Air Room Air 03/18/20 03/18/20 03/18/20 03/18/20 11:17 11:32 11:46 12:02 Pulse 70 61 59 59 Resp 18 18 18 18 B/P (MAP) 134/89 (104) 136/84 (101) 126/73 (90) 131/74 (93) O2 Delivery Room Air Room Air Room Air Room Air 03/18/20 03/18/20 03/18/20 03/18/20 12:18 12:29 12:32 12:35 Pulse 61 69 73 79 Resp 18 18 18 18 B/P (MAP) 135/71 (92) 133/77 (95) 131/79 (96) 140/67 (91) Pulse Ox 98 97 O2 Delivery Room Air Room Air Room Air Room Air 03/18/20 03/18/20 03/18/20 03/18/20 12:38 12:41 12:44 12:47 Temp 36.7 Pulse 71 88 71 81 Resp 18 18 18 18 B/P (MAP) 131/75 (93) 119/76 (90) 115/71 (86) 116/73 (87) Pulse Ox 99 96 O2 Delivery Room Air Room Air Room Air Room Air 03/18/20 03/18/20 03/18/20 03/18/20 12:50 12:53 12:56 12:59 Pulse 81 89 76 83 Resp 18 18 18 18 B/P (MAP) 115/69 (84) 112/70 (84) 103/69 (80) 110/73 (85) Pulse Ox 96 96 97 O2 Delivery Room Air Room Air Room Air Room Air 03/18/20 03/18/20 03/18/20 03/18/20 13:16 13:17 13:20 13:23 Pulse 110 81 89 94 Resp 18 18 18 18 B/P (MAP) 91/59 (70) 109/65 (80) 107/58 (74) 108/60 (76) Pulse Ox 96 97 O2 Delivery Room Air Room Air Room Air Room Air 03/18/20 03/18/20 03/18/20 03/18/20 13:26 13:29 13:31 13:34 Pulse 75 77 67 78 Resp 18 18 18 18 B/P (MAP) 80/46 (57) 85/50 (62) 89/55 (66) 105/63 (77) Pulse Ox 97 93 95 O2 Delivery Room Air Room Air Room Air Room Air 03/18/20 03/18/20 03/18/20 03/18/20 13:38 13:41 13:42 14:00 Pulse 77 77 83 76 Resp 18 18 18 18 B/P (MAP) 110/75 (87) 104/64 (77) 103/69 (80) 99/58 (72) Pulse Ox 99 96 O2 Delivery Room Air Room Air Room Air Room Air 03/18/20 03/18/20 03/18/20 03/18/20 14:12 14:28 14:44 14:57 Pulse 82 77 75 79 Resp 18 18 18 18 B/P (MAP) 99/57 (71) 95/57 (70) 99/63 (75) 96/61 (73) Pulse Ox 96 97 98 O2 Delivery Room Air Room Air Room Air Room Air 03/18/20 03/18/20 03/18/20 03/18/20 15:13 15:28 15:43 16:00 Pulse 73 78 71 80 Resp 18 18 18 18 B/P (MAP) 103/63 (76) 96/60 (72) 109/72 (84) 114/71 (85) Pulse Ox 100 100 99 100 O2 Delivery Room Air Room Air Room Air Room Air 03/18/20 16:14 Temp 36.6 Pulse 84 Resp 18 B/P (MAP) 113/75 (88) Pulse Ox 98 O2 Delivery Room Air Rupture of Membranes Spontaneous Ruture of Membrane: Yes Amniotic Membrane Rupture Time: 0821 Amniotic Membrane Fluid Desc.: Clear Vaginal Bleeding Description: Normal Show Induction/Anesthesia Epidural Cath Placement - Time: 1234 Progress/Notes Patient brought in for cytotec ripening overnight due to polyhydramnios induction at 38 weeks. This at [facility] performed, copious amounts of clear fluid noted. Pitocin augmentation started, patient progressed with complete and +2 station with epidural analgesia. L&D Stage2 Stage Two Stage II Date: Mar 18, 2020 Monitors and Tracing Monitor Mode: External Heart Rate: 125 Monitor Decelerations: Variable Entry Level Electrical Engineer Variability: Average (6-10) Short Term Variability: Present Position: Right Occiput Anterior Presentation: Vertex Cord Descript/Complications Cord Vessel Description: 3 Vessels Delivery Type Delivery Method: Spontaneous Vaginal Anterior Shoulder: Right Episiotomy/Perineal Laceration Laceraction(s)/Extensions: Yes Episiotomy Description: Periurethral Extnsion/lac Degree (describe repair) periurethral repaired using 3-0 rapide in usual fashion Condition of Infant Delivery 1 minute Comment: 8 5 minute Comment: 9 Notes Live female , weight 6lbs 9 oz Condition of Condition of : Living Exam: No Observed Abnormalities Resuscitation Resuscitation: N/A - Spontaneous Resp L&D Stage3 Stage Three Stage III Date: Mar 18, 2020 Pictocin Pitocin Administration mu/min: 12 Pitocin ml/hr: 12 Pitocin Administration Comment: 30 mu wide open at delivery of placenta Placenta Delivery Placenta Delivery: Spontaneous Delivery Summary Summary Estimated blood loss (mL): 350 Attending at delivery: Rebecca Garcia DO Condition of Delivery Examined: Cervix Examined, Uterus Explored Post Hemorrhage: No Condition of Mother stable Condition of (s) stable REBECCA GARCIA DO Mar 18, 2020 16:59
[2020-03-18] MEDS ORDERED: DIBUCAINE (NUPERCAINAL) 1% OINT 30 GM TOP PRN (17:00)
[2020-03-18] MEDS ORDERED: HYDROcodone/APAP 5 MG/325 MG (LORTAB) TAB PO PRN (17:00)
[2020-03-18] MEDS ORDERED: TETANUS,DIPTH,PERTUSS P/F (BOOSTRIX) 0.5 ML VIAL IM ONE (17:00)
[2020-03-18] MEDS ORDERED: BENZOCAINE/MENTHOL (DERMOPLAST) 60 ML CAN TP PRN (17:00)
[2020-03-18] MEDS ORDERED: WITCH HAZEL(TUCKS) 40 EA JAR TOP PRN (17:00)
[2020-03-18] MEDS ORDERED: MEASLES,MUMPS,RUBELLA 1 EA INJ SQ ONE (17:00)
[2020-03-18] MEDS: IBUPROFEN 600 MG (MOTRIN) TAB PO SCH (18:16)
--- NOTE | 2020-03-18 19:12 | NUR ---
REFER TO LABOR FLOW SHEET.
--- NOTE | 2020-03-18 20:00 | NUR ---
pt put director of manufacturing operations light requesting to ambulate to the bathroom. assessment completed. pt ambulated to the bathroom. positive void. pericare performed. pt ambulated back to bed
--- NOTE | 2020-03-18 21:00 | NUR ---
pt assisted to w'c and taken down to room 312. pt orientated to the room. info papers discussed. pt denies any needs at this time.
[2020-03-18] MEDS: DOCUSATE SODIUM 100 MG (COLACE) CAP PO SCH (21:04)
[2020-03-18] MEDS ORDERED: CATHETER FLUSH 10 ML SYR IV SCH (22:00)
[2020-03-19] MEDS: IBUPROFEN 600 MG (MOTRIN) TAB PO SCH ×3 (00:24→14:08)
[2020-03-19 01:25] VITALS: BP 128/76
[2020-03-19 05:32] VITALS: BP 143/77
[2020-03-19 06:01] LABS: BASOPHILS % (AUTO) 0 % (0-10); EOSINOPHILS # (AUTO) 0.1 10^3/uL (0.0-0.3); EOSINOPHILS % (AUTO) 1 % (0-10); HEMATOCRIT 33 % (35-52); HEMOGLOBIN 11.2 G/DL (11.5-16.0); LYMPHOCYTES # (AUTO) 4.3 X 10^3 (1.0-4.0); LYMPHOCYTES % (AUTO) 36 % (12-44); MEAN CORPUSCULAR HEMOGLOBIN 31 PG (25-34); MEAN CORPUSCULAR HGB CONC 34 G/DL (32-36); MEAN CORPUSCULAR VOLUME 90 FL (80-99); MEAN PLATELET VOLUME 10.6 FL (7.4-10.4); MONOCYTES # (AUTO) 0.9 X 10^3 (0.0-1.0); MONOCYTES % (AUTO) 7 % (0-12); NEUTROPHILS # (AUTO) 6.7 X 10^3 (1.8-7.8); NEUTROPHILS % (AUTO) 56 % (42-75); PLATELET COUNT 202 10^3/uL (130-400); RED CELL DISTRIBUTION WIDTH 13.9 % (10.0-14.5)
[2020-03-19] MEDS ORDERED: PRENATAL VITAMIN 1 EA TAB PO SCH (07:00)
[2020-03-19] MEDS: DOCUSATE SODIUM 100 MG (COLACE) CAP PO SCH (07:51)
[2020-03-19 08:00] VITALS: BP 125/74
[2020-03-19] MEDS ORDERED: FERROUS SULF 325 MG (IRON) TAB PO SCH (08:00)
--- NOTE | 2020-03-19 08:00 | NUR ---
A.M. ASSESSMENT COMPLETED. VSS.
--- NOTE | 2020-03-19 08:06 | Postpartum Progress Note ---
Note Note Day # 1 Subjective: Patient is without complaints. Ambulating, voiding. Tolerating a regular diet without nausea or vomiting. Normal lochia. Pain is well controlled with oral pain medications. Objective: Physical Exam: General - Alert and oriented, no apparent distress Abdomen - Soft, appropriately tender to palpation, non-distended, fundus firm at umbilicus Extremities - no edema, negative Tiesha's bilaterally Assessment: PPD 1 NVD Acute blood loss anemia Plan: Routine care. Encourage breast feeding. Encourage ambulation. Ferrous sulfate supplementation. Plan for discharge today, or early tomorrow pending infant release Vitals - Labs Vital Signs - I&O Vital Signs Date Time Temp Pulse Resp B/P (MAP) Pulse Ox O2 Delivery O2 Flow Rate FiO2 03/19/20 05:32 36.1 59 18 143/77 (99) Room Air 03/19/20 01:25 36.0 63 18 128/76 (93) Room Air 03/18/20 21:00 36.5 72 18 110/75 (87) Room Air 03/18/20 18:53 72 18 118/77 (91) Room Air 03/18/20 18:30 36.6 03/18/20 18:12 96 18 127/65 (85) Room Air 03/18/20 17:57 81 18 125/62 (83) Room Air 03/18/20 17:42 74 18 116/63 (80) Room Air 03/18/20 17:41 36.1 03/18/20 17:27 36.3 75 18 111/72 (85) Room Air 03/18/20 17:13 36.3 85 18 120/79 (93) Room Air 03/18/20 17:04 36.4 03/18/20 16:59 81 18 118/56 (76) Room Air 03/18/20 16:28 76 18 120/73 (89) Room Air 03/18/20 16:14 36.6 84 18 113/75 (88) 98 Room Air 03/18/20 16:00 80 18 114/71 (85) 100 Room Air 03/18/20 15:43 71 18 109/72 (84) 99 Room Air 03/18/20 15:28 78 18 96/60 (72) 100 Room Air 03/18/20 15:13 73 18 103/63 (76) 100 Room Air 03/18/20 14:57 79 18 96/61 (73) 98 Room Air 03/18/20 14:44 75 18 99/63 (75) 97 Room Air 03/18/20 14:28 77 18 95/57 (70) Room Air 03/18/20 14:12 82 18 99/57 (71) 96 Room Air 03/18/20 14:00 76 18 99/58 (72) 96 Room Air 03/18/20 13:42 83 18 103/69 (80) Room Air 03/18/20 13:41 77 18 104/64 (77) Room Air 03/18/20 13:38 77 18 110/75 (87) 99 Room Air 03/18/20 13:34 78 18 105/63 (77) 95 Room Air 03/18/20 13:31 67 18 89/55 (66) 93 Room Air 03/18/20 13:29 77 18 85/50 (62) 97 Room Air 03/18/20 13:26 75 18 80/46 (57) Room Air 03/18/20 13:23 94 18 108/60 (76) 97 Room Air 03/18/20 13:20 89 18 107/58 (74) 96 Room Air 03/18/20 13:17 81 18 109/65 (80) Room Air 03/18/20 13:16 110 18 91/59 (70) Room Air 03/18/20 12:59 83 18 110/73 (85) 97 Room Air 03/18/20 12:56 76 18 103/69 (80) Room Air 03/18/20 12:53 89 18 112/70 (84) 96 Room Air 03/18/20 12:50 81 18 115/69 (84) 96 Room Air 03/18/20 12:47 81 18 116/73 (87) Room Air 03/18/20 12:44 36.7 71 18 115/71 (86) 96 Room Air 03/18/20 12:41 88 18 119/76 (90) Room Air 03/18/20 12:38 71 18 131/75 (93) 99 Room Air 03/18/20 12:35 79 18 140/67 (91) 97 Room Air 03/18/20 12:32 73 18 131/79 (96) Room Air 03/18/20 12:29 69 18 133/77 (95) 98 Room Air 03/18/20 12:18 61 18 135/71 (92) Room Air 03/18/20 12:02 59 18 131/74 (93) Room Air 03/18/20 11:46 59 18 126/73 (90) Room Air 03/18/20 11:32 61 18 136/84 (101) Room Air 03/18/20 11:17 70 18 134/89 (104) Room Air 03/18/20 11:02 57 18 120/77 (91) Room Air 03/18/20 10:47 60 18 131/75 (93) Room Air 03/18/20 10:43 36.6 03/18/20 10:31 60 18 120/78 (92) Room Air 03/18/20 10:18 68 18 120/75 (90) Room Air 03/18/20 10:02 66 18 130/69 (89) Room Air 03/18/20 09:46 67 18 126/82 (97) Room Air 03/18/20 09:32 65 18 131/76 (94) Room Air 03/18/20 09:17 64 18 125/82 (96) Room Air 03/18/20 09:02 64 18 129/68 (88) Room Air 03/18/20 08:47 68 18 129/85 (100) Room Air 03/18/20 08:32 73 18 123/79 (94) Room Air 03/18/20 08:16 67 18 123/73 (90) Room Air I & O 03/19/20 07:00 Intake Total 4000 ml Balance 4000 ml Labs Laboratory Tests 03/19/20 05:11: White Blood Count 12.0H, Red Blood Count 3.65L, Hemoglobin 11.2L, Hematocrit 33L , Mean Corpuscular Volume 90, Mean Corpuscular Hemoglobin 31, Mean Corpuscular Hemoglobin Concent 34, Red Cell Distribution Width 13.9, Platelet Count 202, Mean Platelet Volume 10.6H, Neutrophils (%) (Auto) 56, Lymphocytes (%) (Auto) 36, Monocytes (%) (Auto) 7, Eosinophils (%) (Auto) 1, Basophils (%) (Auto) 0, Neutrophils # (Auto) 6.7, Lymphocytes # (Auto) 4.3H, Monocytes # (Auto) 0.9, Eosinophils # (Auto) 0.1, Basophils # (Auto) 0.0 REBECCA GARCIA DO Mar 19, 2020 08:06
[2020-03-19] MEDS ORDERED: HYDR-83 PO (08:07)
[2020-03-19] MEDS ORDERED: DIBU30OI TOP (08:07)
[2020-03-19] MEDS ORDERED: BENZ78AE2 TP (08:07)
[2020-03-19] MEDS ORDERED: IBUP-844 PO (08:07)
[2020-03-19] MEDS ORDERED: DCS100C PO (08:07)
--- NOTE | 2020-03-19 08:08 | Discharge Inst-Women's Service ---
Discharge Inst-Women's Serv Depart Medication/Instructions New, Converted or Re-Newed RX: RX on Chart Final Diagnosis PPD 1 NVD Problems Reviewed?: Yes Consults/Follow Up Additional Follow Up: Yes Orders/Referrals Dr. Garcia in 6 weeks Activity Activity: Activity as Tolerated Driving Instructions: No Driving for 1 Week NO SMOKING: NO SMOKING Nothing Inside Vagina: No Douching, No [place], No Tampons Diet Discharge Diet: No Restrictions Symptoms to Report to : Bleeding Excessive, Pain Increased, Fever Over 101 Degrees F, Vaginal Bleeding Increase, Questions/Concerns For Any Problems or Questions: Contact Your Physician REBECCA GARCIA DO Mar 19, 2020 08:08
--- NOTE | 2020-03-19 08:15 | NUR ---
DR. ZAMARRIPA AND DR. GARCIA IN TO SEE PATIENTS.
--- NOTE | 2020-03-19 10:15 | NUR ---
INFANT TO NURSERY FOR ASSESSMENTS.
--- NOTE | 2020-03-19 10:28 | Anesthesia-Regional Post-Op ---
Regional Patient Condition Mental Status: Alert, Oriented x3 Circulation: Same as Pre-Op Headache: Absent Sensation: Full Recovery Motor Block: Absent Post Op Complications Complications None Follow Up Care/Instructions Patient Instructions None needed. Anesthesia/Patient Condition Patient is doing well, no complaints, stable vital signs, no apparent adverse anesthesia problems. No complications reported per nursing. D/C home per [facility] Criteria: No ADELINE SANDERS CRNA Mar 19, 2020 10:28
--- NOTE | 2020-03-19 11:19 | NUR ---
LAB HERE TO DRAW SEROLOGY LABS PER DR. GARCIA ORDER.
[2020-03-19 12:15] VITALS: BP 119/70
--- NOTE | 2020-03-19 12:15 | NUR ---
VSS. CARING FOR INFANT IN ROOM. GOOD INTERACTION NOTED. HAS BEEN IN TODAY TO SEE MOM.
--- NOTE | 2020-03-19 12:30 | NUR ---
DR. GARCIA NOTIFIED OF GETTING SEROLOGY RESULTS. NEW LABS CANCELLED.
--- NOTE | 2020-03-19 13:00 | NUR ---
EATING STORK MEAL.
--- NOTE | 2020-03-19 14:08 | NUR ---
RESTING IN BED. ROUTINE MOTRIN GIVEN.
[2020-03-19 16:45] VITALS: BP 119/58
--- NOTE | 2020-03-19 16:45 | NUR ---
VSS. ANXIOUS TO GO HOME. WILL WAIT FOR INFANT'S BILIRUBIN RESULTS.
--- NOTE | 2020-03-19 18:00 | NUR ---
BILIRUBIN CALLED TO DR. ZAMARRIPA. PLAN FOR DISCHARGE.
--- NOTE | 2020-03-19 19:05 | NUR ---
DISCHARGE INSTRUCTIONS REVIEWED WITH PT AND COPY GIVEN. STATES UNDERSTANDING OF ALL INSTRUCTIONS AND NEED TO F/U SCHEDULED AND NEEDED. RXS GIVEN.
[2020-03-19 19:10] VITALS: BP 119/58
--- NOTE | 2020-03-19 19:10 | NUR ---
DISMISSED AMB FROM [facility] WITH INFANT IN STABLE CONDITION TO [facility]ILY [facility] BY SPOUSE AND FRANKI PEARCE RN.
== END 2020-03-19 19:10 | disposition home or self-care (01) | DRG 806 ==
LOC: LDRP 18:51
PROVIDERS: ADMIT Obstetrics & Gynecology; ATTEND Obstetrics & Gynecology
PROC: 3E0DXGC Introduction of Other Therapeutic Substance into Mouth and Pharynx, External Approach (ICD-10-PCS; 2020-03-17)
PROC: 10E0XZZ Delivery of Products of Conception, External Approach (ICD-10-PCS; principal; 2020-03-18)
DX: O40.3XX0 Polyhydramnios, third trimester, not applicable or unspecified (principal); O71.82 Other specified trauma to perineum and vulva; O90.81 Anemia of the puerperium; D62 Acute posthemorrhagic anemia; Z37.0 Single live birth; Z3A.38 38 weeks gestation of pregnancy
CPT/HCPCS: 36415; 85025; 86850; 86900; 86901

== ENCOUNTER 2020-05-21 05:46 | Outpatient (RCR) | payer MEDICAID ==
[~2020-05-21] VITALS: Ht 167 cm; Wt 94.0 kg
[~2020-05-21 05:46] MED LIST changes: +BENZ78AE2 TP; +DCS100C PO; +DIBU30OI TOP; +HYDR-83 PO; +IBUP-844 PO
== END 2020-05-21 15:39 | disposition home or self-care (01) ==
LOC: PREOP 05:46
PROVIDERS: ATTEND Surgery
DX: Z01.818 Encounter for other preprocedural examination (principal); Z11.59 Encounter for screening for other viral diseases
CPT/HCPCS: 87635

== ENCOUNTER 2020-05-24 13:25 | Day surgery (SDC) | payer MEDICAID ==
[~2020-05-24] VITALS: Ht 167 cm; Wt 94.0 kg
[2020-05-24] MEDS ORDERED: LACTATED RINGERS 1,000 ML IV STA (13:26)
[2020-05-24] MEDS ORDERED: HURRICAINE EXT TUBE (BENZOCAINE) XX PRN (13:30)
[2020-05-24] MEDS ORDERED: LACTATED RINGERS 1,000 ML IV ONE (13:34)
[2020-05-24 13:48] VITALS: BP 128/88
--- NOTE | 2020-05-24 14:06 | Progress Note-Pre Operative ---
Pre-Operative Progress Note H&P Reviewed The H&P was reviewed, patient examined and no changes noted. Date Seen by Provider: May 24, 2020 Time Seen by Provider: 14:05 Date H&P Reviewed: May 24, 2020 Time H&P Reviewed: 14:05 Pre-Operative Diagnosis: hemetemsis, blood in stool, diarrhea, epigastric abd pain RONNI ROSENBAUM DO May 24, 2020 14:06
[2020-05-24] MEDS ORDERED: MIDAZOLAM 2 MG/2 ML (VERSED) VIAL ONE (14:07)
[2020-05-24] MEDS ORDERED: proPOfol 200 MG/20 ML (DIPRIVAN) VIAL IV ONE ×2 (14:07→14:45)
--- OUTSIDE RECORDS SUMMARY | 2020-05-24 14:08 | XMS REPORT | Continuity of Care Document ---
Author Organization Unknown Address Unknown Phone Unavailable Allergies Active Description Code Type Severity Reaction Onset Reported/Identified Relationship to Patient Clinical Status Yes No Known Drug Allergies [id number] Drug Allergy Unknown N/A 05/16/2020 Medications There is no data. Problems Date [...] ENVIRON TOBACCO SMO 01/26/2020 FENECH DO, REBECCA S Ot O26.893 OTH RELATED CONDITIONS, THIRD 01/26/2020 FENECH DO, REBECCA S Ot R03.0 ELEVATED BLOOD-PRESSURE READING, W/O GLORY 01/26/2020 FENECH DO, REBECCA S Ot Z3A.31 31 WEEKS GESTATION OF 01/30/2020 FENECH DO, REBECCA S Ot O26.893 OTH RELATED CONDITIONS, THIRD 01/30/2020 FENECH DO, REBECCA S Ot R03.0 ELEVATED BLOOD-PRESSURE READING, W/O GLORY 01/30/2020 FENECH DO, REBECCA S Ot Z3A.31 31 WEEKS GESTATION OF 02/03/2020 FENECH DO, REBECCA S Ot O26.893 OTH RELATED CONDITIONS, THIRD 02/03/2020 FENECH DO, REBECCA S Ot R03.0 ELEVATED BLOOD-PRESSURE READING, W/O GLORY 02/03/2020 FENECH DO, REBECCA S Ot Z3A.31 31 WEEKS GESTATION OF 03/19/2020 FENECH DO, REBECCA S Ot D6 2 ACUTE POSTHEMORRHAGIC ANEMIA 03/19/2020 FENECH DO, REBECCA S Ot O40.3XX0 POLYHYDRAMNIOS, THIRD TRIMESTER, NOT FRANCA 03/19/2020 FENECH DO, REBECCA S Ot O71.82 OTHER SPECIFIED TRAUMA TO PERINEUM AND V 03/19/2020 FENECH DO, REBECCA S Ot O90.81 ANEMIA OF THE PUERPERIUM 03/19/2020 JOSÉ ANTONIOECH DO, REBECCA S Ot Z37.0 SINGLE LIVE 03/19/2020 FENECH DO, REBECCA S Ot Z3A.38 38 WEEKS GESTATION OF Procedures Code Description Performed By Per formed On [id number] IN [facility] THERAP SUBST IN MOUTH/PHAR 03/17/2020 [id number] DE LIVERY OF PRODUCTS OF CONCEPTION, EXTE 03/18/2020 Results Test Result Range Urine drug screening [...] ragweed IgE antibody assay 232 U/L 125-220 Complete blood count (CBC) with automate d white blood cell (WBC) differential - 03/17/20 21:25 Blood leukocytes automated count (number/volume) 12.6 10*3/uL 4.3-11.0 Blood erythrocytes automated count (number/volume) 4.42 10*6/uL 4.35-5.85 Venous blood hemoglobin measurement (mass/volume) 13.9 g/dL 11.5-16.0 Blood hematocrit (volume fraction) 39 % 35-52 Automated erythrocyte mean corpuscular volume 89 [ foz_us] 80-99 Automated erythrocyte mean corpuscular h emoglobin (mass per erythrocyte) 31 pg 25-34 Automated erythrocyte mean corpuscular h emoglobin concentration measurement (mass/volume) 36 g/dL 32-36 Automated erythrocyte distribution width ratio 13. 6 % 10.0- 14.5 Automated blood platelet count (count/volume) 232 10*3/uL 130-400 Automated blood platelet mean volume measurement 10.4 [foz_us] 7.4-10.4 Automated blood neutrophils/100 leukocytes 66 % 42-75 Automated blood lymphocytes/100 leukocytes 27 % 12-44 Blood monocytes/100 leukocytes 6 % 0-12 Automated blood eosinophils/100 leukocytes 1 % 0-10 Automated blood basophils/100 leukocytes 0 % 0-10 Blood neutrophils automated count (number/volume) 8.4 10*3 1.8-7.8 Blood lymphocytes automated count (number/volume) 3.5 10*3 1.0-4.0 Blood monocytes automated count (number/volume) 0. 7 10*3 0.0-1.0 Automated eosinophil count 0.1 10*3/uL 0 .0-0.3 Automated blood basophil count (count/volume) 0.0 10*3/uL 0.0-0.1 Blood type T Indirect antibody screen pa dez - 03/17/20 21:25 WRISTBAND NUMBER [id number] NRG ABO+Rh group BP NRG Blood group antibody screen NEGATIVE NR G Complete blood count (CBC) with automate d white blood cell (WBC) differential - 03/19/20 05:11 Blood leukocytes automated count (number/volume) 12.0 10*3/uL 4.3-11.0 Blood erythrocytes automated count (number/volume) 3.65 10*6/uL 4.35-5.85 Venous blood hemoglobin measurement (mass/volume) 11.2 g/dL 11.5-16.0 Blood hematocrit (volume fraction) 33 % 35-52 Automated erythrocyte mean corpuscular volume 90 [ foz_us] 80-99 Automated erythrocyte mean corpuscular h emoglobin (mass per erythrocyte) 31 pg 25-34 Automated erythrocyte mean corpuscular h emoglobin concentration measurement (mass/volume) 34 g/dL 32-36 Automated erythrocyte distribution width ratio 13. 9 % 10.0- 14.5 Automated blood platelet count (count/volume) 202 10*3/uL 130-400 Automated blood platelet mean volume measurement 10.6 [foz_us] 7.4-10.4 Automated blood neutrophils/100 leukocytes 56 % 42-75 Automated blood lymphocytes/100 leukocytes 36 % 12-44 Blood monocytes/100 leukocytes 7 % 0-12 Automated blood eosinophils/100 leukocytes 1 % 0-10 Automated blood basophils/100 leukocytes 0 % 0-10 Blood neutrophils automated count (number/volume) 6.7 10*3 1.8-7.8 Blood lymphocytes automated count (number/volume) 4.3 10*3 1.0-4.0 Blood monocytes automated count (number/volume) 0. 9 10*3 0.0-1.0 Automated eosinophil count 0.1 10*3/uL 0 .0-0.3 Automated blood basophil count (count/volume) 0.0 10*3/uL 0.0-0.1 Coronavirus SARS-CoV-2 SO 2018 - 0 08:24 Coronavirus Ab [Units/volume] in Serum Negative Negative Encounters ACCT No. Visit Date/Time Discharge Status Pt. Type Provider Facility Loc./Unit Complaint [id number] 05/21/2020 05:46:00 15:39:00 DIS Outpatient RONNI ROSENBAUM DO [facility] PREOP COLONOSCOPY/EGD [id number] 03/17/2020 18:51:00 19:10:00 DIS Inpatient REBECCA GARCIA DO [facility] LDRP INDUCTION [id number] 01/26/2020 18:57:00 20:45:00 DIS Outpatient REBECCA GARCIA DO [facility] WSo ELEV BP [id number] 12/20/2019 15:27:00 16:20:00 DIS Emergency BRIDGETTE NEELY APRN [facility] ER SINUS INFECTION [id number] 12/18/2019 16:15:00 19:17:00 DIS Outpatient YOKO VILLASENOR DO [facility] WSo CRAMPING/ABD PAIN [id number] 05/24/2020 15:10:00 P EN Preadmit RONNI ROSENBAUM DO [facility] ENDO BLOOD IN STOOL/HEMAEMESIS
[2020-05-24 15:00] VITALS: BP 132/92
[2020-05-24] MEDS ORDERED: HURRICAINE EXT TUBE (BENZOCAINE) ONE (15:00)
--- NOTE | 2020-05-24 15:00 | Progress Note-Post Operative ---
Post-Operative Progess Note Surgeon (s)/Automatic Pattern Edger (s) Surgeon RONNI ROSENBAUM DO Automatic Pattern Edger: na Pre-Operative Diagnosis hemetemsis, blood in stool, diarrhea, epigastric abd pain Post-Operative Diagnosis gastritis, inflammed cobblestoned appearance ileum, colon polyps, rectal questionable scar Procedure & Operative Findings Date of Procedure 05/24/20 Procedure Performed/Findings egd c biopsies, colonoscopy c cold biopies distal ileum, hots bx polypectomy x 4 and cold biopsy rectum x 2 Anesthesia Type per [facility] Estimated Blood Loss Estimated blood loss (mL): scant Specimens/Packing Specimens Removed antrum, body, ge, ileum, colon polyps and rectal biopsies RONNI ROSENBAUM DO May 24, 2020 15:00
[2020-05-24] MEDS ORDERED: PANT40TA2 PO (15:04)
--- NOTE | 2020-05-24 15:04 | Anesthesia-General Post-Op ---
MAC Patient Condition Mental Status/LOC: Same as Preop Cardiovascular: Satisfactory Nausea/Vomiting: Absent Respiratory: Satisfactory Pain: Controlled Complications: Absent Post Op Complications Complications None Follow Up Care/Instructions Patient Instructions None needed. Anesthesiology Discharge Order Discharge Order Patient is doing well, no complaints, stable vital signs, no apparent adverse anesthesia problems. GENIE HAMM DO May 24, 2020 15:04
[2020-05-24 15:05] VITALS: BP 132/92
--- NOTE | 2020-05-24 15:08 | Discharge Inst-Simple/Standard ---
Discharge Inst-Standard Discharge Medications New, Converted or Re-Newed RX: Transmitted to Pharmacy Patient Instructions/Follow Up Plan of Care/Instructions/FU: 2 weeks Alicja Activity as Tolerated: Yes Discharge Diet: Regular Diet RONNI ROSENBAUM DO May 24, 2020 15:08
[2020-05-24 15:35] VITALS: BP 138/90
[2020-05-24 15:38] VITALS: BP 138/90
--- NOTE | 2020-05-24 21:24 | OPERATIVE REPORT ---
DATE OF SERVICE: 05/24/2020 PREOPERATIVE DIAGNOSES: Hematemesis, blood in stool, diarrhea, epigastric abdominal pain. POSTOPERATIVE DIAGNOSES: Gastritis, including cobblestone appearance of the ileum, colon polyps, rectal questionable scar. PROCEDURE: EGD with biopsies, colonoscopy with cold biopsy of the distal ileum, hot biopsy polypectomy x4 and cold biopsies of the rectum x2. SURGEON: Ronni Helm DO ANESTHESIA: Per MDA. ESTIMATED BLOOD LOSS: Scant. COMPLICATIONS: None. INDICATIONS: The patient is a 29-year-old female who has been having lots of abdominal complaints. She had some hematemesis. She has been having blood in her stools, significant diarrhea and epigastric abdominal pain. She understands risks and benefits of procedure and wished to proceed with procedure. Consent was signed in the chart. DESCRIPTION OF PROCEDURE: The patient was taken to the endoscopy suite, placed in left lateral recumbent position. Timeout was performed. Scope was inserted in mouth, down the esophagus, stomach and into the duodenum without difficulty. There were no polyps muscle masses or ulcerations within the duodenum. Scope was slowly retracted back into the stomach where further insufflated. Erythematous gastritis appearance throughout the majority of the stomach was present. Biopsy of the antrum and body were obtained. Scope was retroflexed noting no other pathology. Scope was returned to its normal position, slowly withdrawn to the distal esophagus. Biopsy of the GE junction was obtained. Scope was then slowly retracted back until completely removed noting no other pathology. Digital rectal exam was performed. There were no palpable polyps, masses or ulcerations. Scope was inserted in the rectum and advanced all the way to the cecum with minimal difficulty. Prep was adequate. The terminal ileum was then intubated cobblestoning inflamed appearance of the distal ileum was present. Biopsies of this area were obtained. Scope was slowly retracted back into this colon. There were no polyps or ulcerations within the cecum and ascending colon and transverse colon. Two small polyps were present, which hot biopsy polypectomy was performed. Scope was then continuously slowly retracted back through the remainder of the transverse and descending colon without noting any other pathology. In the sigmoid colon, another 2 small polyps were present, which hot biopsy polypectomies were performed. Scope was then continuously slowly retracted back into the rectum, where it was also retroflexed noting on a halfmoon shaped scar appearance of the mucosa. Cold biopsies were obtained of this. Scope was then returned to its normal position, slowly withdrawn until completely removed. The patient tolerated procedure well without any complications. She was taken to recovery room in stable condition. RECOMMENDATIONS: The patient will be started on Protonix 40 mg daily. Await biopsy results. The patient will follow up in 2 weeks. Any issues before that same time be seen at that time. The patient will need repeat colonoscopy per routine screening guidelines if she has any return of her symptoms or change in condition, she should be reevaluated at that time and consider repeating colonoscopy and EGD. Job ID: [id number] DocumentID: [id number] Dictated Date: 05/24/2020 15:26:33 Guest Relations Officer Date: 05/24/2020 21:23:36 Dictated By: RONNI HELM DO
== END 2020-05-24 15:50 | disposition home or self-care (01) ==
LOC: ENDO 13:25
PROVIDERS: ATTEND Surgery
DX: K63.5 Polyp of colon (principal); K62.1 Rectal polyp; K29.50 Unspecified chronic gastritis without bleeding; K21.0 Gastro-esophageal reflux disease with esophagitis; E66.9 Obesity, unspecified; Z68.33 Body mass index [BMI] 33.0-33.9, adult; Z79.899 Other long term (current) drug therapy; Z87.891 Personal history of nicotine dependence; Z82.49 Family history of ischemic heart disease and other diseases of the circulatory system
CPT/HCPCS: 88305

== ENCOUNTER 2020-10-02 09:22 | Emergency (ER) | payer MEDICAID ==
[~2020-10-02] VITALS: Ht 167 cm; Wt 95.0 kg
[~2020-10-02 09:22] MED LIST changes: +ACHD5005 PO; -BENZ78AE2 TP; +BENZ78AE5 TP; -HYDR-83 PO; +PANT40TA2 PO
[2020-10-02 09:30] VITALS: BP 148/110
--- NOTE | 2020-10-02 09:34 | ED GU-Female ---
General Chief Complaint: Female Reproductive Stated Complaint: VAGINAL BLEEDING Source: patient Exam Limitations: no limitations History of Present Illness Date Seen by Provider: Oct 02, 2020 Time Seen by Provider: 09:34 Initial Comments 30-year-old female presents with vaginal bleeding. Patient reports that 3 days ago her Mirena spontaneously came out. That 48 hours later she started having some vaginal bleeding. She reports it seems a little heavier than normal is concerned about a clot. Patient has no fevers chills does have some mild cramping but no pain in her pelvis. Agent with no other systemic complaints Allergies and Home Medications Allergies Coded Allergies: No Known Drug Allergies (Unverified , 05/16/20) Home Medications Pantoprazole Sodium 40 Mg Tablet.dr, 40 MG PO DAILY Prescribed by: RONNI ROSENBAUM on 05/24/20 4228 Patient Home Medication List Home Medication List Reviewed: Yes Review of Systems Review of Systems Constitutional: no symptoms reported EENTM: no symptoms reported Respiratory: no symptoms reported Cardiovascular: no symptoms reported Gastrointestinal: no symptoms reported Genitourinary: see HPI : No Skin: no symptoms reported Psychiatric/Neurological: No Symptoms Reported Endocrine: No Symptoms Reported Past Jxwwslv-[id number]-Bsuytd Hx Past Med/Social Hx: Reviewed Nursing Past Med/Soc Hx Patient Social History Type Used: Cigarettes 2nd Hand Smoke Exposure: No Recent Foreign Travel: No Contact w/Someone Who Travel: No Recent Hopitalizations: No Immunizations Up To Date Date of Influenza Vaccine: Aug 29, 2019 Seasonal Allergies Seasonal Allergies: No Past Medical History Surgeries: Yes (tumor removed from SPINE, breast augmentation, mastopexy, KIDNEY STONES X3) Tonsillectomy Respiratory: No Cardiac: No Hypertension Neurological: No Sexually Transmitted Disease: No HIV/AIDS: No Genitourinary: Yes Kidney Infection, Kidney Stones, UTI-Chronic Gastrointestinal: Yes Gastroesophageal Reflux, Chronic Diarrhea Musculoskeletal: Yes Back Injury Endocrine: No HEENT: No (GLASSES) Loss of Vision: Denies Hearing Impairment: Denies Cancer: No Psychosocial: Yes Anxiety Integumentary: No Blood Disorders: No Adverse Reaction/Blood Tranf: No (N/A) Family Medical History Patient reports no known family medical history. Physical Exam Vital Signs Vital Signs - First Documented 10/02/20 09:30 Temp 36.2 Pulse 92 Resp 16 B/P (MAP) 148/110 (123) Pulse Ox 97 O2 Delivery Room Air Capillary Refill : Height, Weight, BMI Height: '" Weight: lbs. oz. kg; 33.70 BMI Method: General Appearance: WD/WN, no apparent distress Neck: non-tender, full range of motion Cardiovascular: normal peripheral pulses, regular rate, rhythm Respiratory: lungs clear, normal breath sounds Gastrointestinal: soft, tenderness (mild lower abdomen consistent with menstrual cycle) Genital/Rectal: other Pelvic: other (deferred) Back: no CVA tenderness, no vertebral tenderness Extremities: normal range of motion, non-tender Progress/Results/Core Measures Suspected Sepsis SIRS Temperature: Pulse: Respiratory Rate: Blood Pressure / Mean: Results/Orders Vital Signs/I&O 10/02/20 09:30 Temp 36.2 Pulse 92 Resp 16 B/P (MAP) 148/110 (123) Pulse Ox 97 O2 Delivery Room Air Capillary Refill : Progress Note : Time: 09:57 Progress Note Patient with vaginal bleeding consistent with post-Mirena/hormone removal. 's with Dr. GARCIA who will see patient as needed in the clinic. I did review with patient the extreme variations in female response to the post hormone or control and they're menstrual cycle. Recommend she follow-up with Dr. GARCIA if she continues to have issues and heavy bleeding more than a few days. Departure Impression Primary Impression: Dysmenorrhea Disposition: 01 HOME, SELF-CARE Condition: Stable Departure-Patient Inst. Referrals: [facility] (PCP/Family) Primary Care Physician Patient Instructions: IRREGULAR VAGINAL BLEEDING Add. Discharge Instructions: Follow-up with Dr. GARCIA as needed. All discharge instructions reviewed with patient and/or family. Voiced unde rstanding. VALERIE TAMAYO DO Oct 02, 2020 09:34
== END 2020-10-02 10:04 | disposition home or self-care (01) ==
LOC: EDUNIT# 09:22 → ER 09:25
DX: N94.6 Dysmenorrhea, unspecified (principal); K21.9 Gastro-esophageal reflux disease without esophagitis; Z20.828 Contact with and (suspected) exposure to other viral communicable diseases
CPT/HCPCS: 99282

== ENCOUNTER → 2021-03-14 | Outpatient (CLI) | payer MEDICAID ==
--- NOTE | 2021-03-14 16:23 | Diagnostic Imaging Report ---
INDICATION: patient, survey. TECHNIQUE: Multiple real-time grayscale images were obtained over the gravid uterus. COMPARISON: None. FINDINGS: A single live intrauterine fetus is seen measuring 20 weeks 2 days in size by composite measurements. Cervical length is 4.7 cm. Placenta is posterior with no evidence of previa. Amniotic fluid is qualitatively normal. There is heart rate of 146 bpm. There is no subchorionic bleed. The fetus is in breech presentation at this time. Maternal adnexa could not be visualized. survey showed normal-appearing kidneys and bladder. Normal-appearing stomach. Normal-appearing intracranial ventricles are seen. Normal-appearing four-chamber heart view and three-vessel cord were seen. Cord insertion appeared normal. The spine appeared normal. Biometrical measurements are as follows: Biparietal 4.33 cm, age 19 weeks 1 days. Head circumference 17.44 cm, age 20 weeks 0 days. Abdominal circumference 15.39 cm, age 20 weeks 5 days. Femur length 3.53 cm, age 21 weeks 2 days. Sonographic estimate age: 20 weeks 2 days. Sonographic estimated date of delivery: 07/30/2021. Estimated Weight: 371 gm (+/- 54 gm). LMP percentile: 83%. heart rate: 146 beats per minute. number: 1 of 1. IMPRESSION: Single live intrauterine fetus measuring 20 weeks 2 days in size. There are no detectable abnormalities. Dictated by: Dictated on workstation # [id number]
== END ==
LOC: RAD 14:57
PROVIDERS: ATTEND Nurse Practitioner Women's Health
DX: Z36.89 Encounter for other specified antenatal screening (principal); Z3A.20 20 weeks gestation of pregnancy
CPT/HCPCS: 76805

== ENCOUNTER → 2021-05-08 | Outpatient (CLI) | payer MEDICAID | LOC: LABNPT 17:38 | PROVIDERS: ATTEND Nurse Practitioner Women's Health | DX: R03.0 Elevated blood-pressure reading, without diagnosis of hypertension (principal) | CPT/HCPCS: 82570; 84156 ==

== ENCOUNTER → 2021-06-11 | Outpatient (CLI) | payer MEDICAID | LOC: LABNPT 17:06 | PROVIDERS: ATTEND Nurse Practitioner Women's Health | DX: O13.9 Gestational [pregnancy-induced] hypertension without significant proteinuria, unspecified trimester (principal); Z3A.00 Weeks of gestation of pregnancy not specified | CPT/HCPCS: 82570; 84156 ==

== ENCOUNTER 2021-07-17 06:55 | Inpatient (IN) | payer MEDICAID ==
[~2021-07-17] VITALS: Ht 167 cm; Wt 100.3 kg
[2021-07-17] VITALS (56 sets, daily range): BP systolic 105–153; BP diastolic 62–90
[2021-07-17] MEDS ORDERED: MINERAL OIL CONCENTRATE 99.9% 15 ML UDC TOP PRN (07:45)
[2021-07-17] MEDS: D5 LR IV SOLUTION 1,000 ML IV SCH ×2 (08:02→15:06)
[2021-07-17 08:17] LABS: BASOPHILS % (AUTO) 0 % (0-10); EOSINOPHILS # (AUTO) 0.1 10^3/uL (0.0-0.3); EOSINOPHILS % (AUTO) 1 % (0-10); HEMATOCRIT 38 % (35-52); HEMOGLOBIN 13.3 g/dL (11.5-16.0); LYMPHOCYTES # (AUTO) 3.6 10^3/uL (1.0-4.0); LYMPHOCYTES % (AUTO) 35 % (12-44); MEAN CORPUSCULAR HEMOGLOBIN 31 pg (25-34); MEAN CORPUSCULAR HGB CONC 35 g/dL (32-36); MEAN CORPUSCULAR VOLUME 88 fL (80-99); MEAN PLATELET VOLUME 10.6 fL (9.0-12.2); MONOCYTES # (AUTO) 0.6 10^3/uL (0.0-1.0); MONOCYTES % (AUTO) 6 % (0-12); NEUTROPHILS # (AUTO) 5.9 10^3/uL (1.8-7.8); NEUTROPHILS % (AUTO) 58 % (42-75); PLATELET COUNT 240 10^3/uL (130-400); WHITE BLOOD COUNT 10.3 10^3/uL (4.3-11.0)
[2021-07-17] MEDS ORDERED: OXYTOCIN PRE-MIX DRIP 500 ML IV ONE ×2 (08:28→21:17)
[2021-07-17] MEDS ORDERED: OXYTOCIN PRE-MIX DRIP 500 ML IV SCH (08:30)
[2021-07-17] MEDS ORDERED: PREN1TAB19 PO (10:16)
[2021-07-17] MEDS ORDERED: ASPI-999 PO (10:16)
[2021-07-17] MEDS ORDERED: LABE200T7 PO (10:16)
[2021-07-17] MEDS ORDERED: HYDROmorphone 2 MG/ML VIAL (DILAUDID) ONE ×2 (12:57→16:09)
[2021-07-17] MEDS ORDERED: HYDROmorphone 2 MG/ML VIAL (DILAUDID) IV ONE (13:00)
[2021-07-17] MEDS ORDERED: HYDROmorphone 2 MG/ML VIAL (DILAUDID) IVP ONE (16:15)
--- NOTE | 2021-07-17 16:21 | History & Physical-OB ---
OB - Chief Complaint & HPI Date/Time Date of Admission: Date of Admission: Jul 17, 2021 at 6:55 am Date seen by a Provider: Jul 17, 2021 Time Seen by a Provider: 08:10 Chief Complaint/History OB-Reason for Admission/Chief: Induction of Labor Hx : 4 Hx Para: 3 Expected Date of Delivery: Aug 01, 2021 Gestational Age in Weeks: 38 Gestational Age in Days: 5 Other reason for admission: IOL for GHTN, started on Labetalol 200 mg BID at 35 weeks , and now uncontrolled on labetalol. Admission Nurse Assessment Rev: Yes Allergies and Home Medications Allergies Coded Allergies: No Known Drug Allergies (Unverified , 05/16/20) Home Medications Aspirin 81 Mg Tab.chew, 81 MG PO DAILY, (Reported) Last Action: New Order Labetalol HCl 200 Mg Tablet, 200 MG PO BID, (Reported) Last Action: New Order Pantoprazole Sodium 40 Mg Tablet.dr, 40 MG PO DAILY Prescribed by: RONNI ROSENBAUM on 05/24/20 1504 Vit/Iron Fumarate/FA 1 Each Tablet, 1 EACH PO DAILY, (Reported) Last Action: New Order Patient Home Medication List Home Medication List Reviewed: Yes OB - History Hx of Present Care: Yes Ultrasounds: Normal mid trimester US Obstetrical Complications: Gestational Hypertension Medical Complications: None Delivery History Adverse Rxn to Tranfusion: No (N/A) Patient Past Medical History n /a Social History/Family History 2nd Hand Smoke Exposure: No Immunizations Hepatitis A: Yes Hepatitis B: Yes Date of Influenza Vaccine: Aug 29, 2019 OB - Admission Exam Physical Exam Vitals: Vital Signs 07/17/21 07/17/21 07/17/21 08:13 12:00 13:45 Temp 36.3 Pulse 68 Resp 16 B/P (MAP) 119/73 (88) Pulse Ox 98 O2 Delivery Room Air HEENT: NCAT Heart: Rhythm Normal Lungs: Clear Abdomen: Gravid Extremities: Normal Reflexes: Normal Cervical Dilatation: 2cm Effacement: 75% Station: -2 Membranes: Intact Heart Rate: 130's Accelerations: Accelerations Present Decelerations: No Decelerations Short Term Variability: Present Alternative Energy Technician Variability: Average (6-25) Contractions on Admission: 6-10 Minutes Apart Intensity: Mild Labs Laboratory Tests Test 07/17/21 08:00 Range/Units White Blood Count 10.3 4.3-11.0 10^3/uL Red Blood Count 4.31 3.80-5.11 10^6/uL Hemoglobin 13.3 11.5-16.0 g/dL Hematocrit 38 35-52 % Mean Corpuscular Volume 88 80-99 fL Mean Corpuscular Hemoglobin 31 25-34 pg Mean Corpuscular Hemoglobin Concent 35 32-36 g/dL Red Cell Distribution Width 13.3 10.0-14.5 % Platelet Count 240 130-400 10^3/uL Mean Platelet Volume 10.6 9.0-12.2 fL Immature Granulocyte % (Auto) 0 % Neutrophils (%) (Auto) 58 42-75 % Lymphocytes (%) (Auto) 35 12-44 % Monocytes (%) (Auto) 6 0-12 % Eosinophils (%) (Auto) 1 0-10 % Basophils (%) (Auto) 0 0-10 % Neutrophils # (Auto) 5.9 1.8-7.8 10^3/uL Lymphocytes # (Auto) 3.6 1.0-4.0 10^3/uL Monocytes # (Auto) 0.6 0.0-1.0 10^3/uL Eosinophils # (Auto) 0.1 0.0-0.3 10^3/uL Basophils # (Auto) 0.0 0.0-0.1 10^3/uL Immature Granulocyte # (Auto) 0.0 0.0-0.1 10^3/uL OB - Assessment/Plan/Diagnosis Assessment Assessment: induction of labor Admission Dx 30 yo G4P 3 @ 37.6 weeks IOL for GHTN -poor control GBS neg Admission Status: Inpatient Order (span 2 midnights) Reason for Inpatient Admission: IOL at 37.6 Plan Induction Method: REBECCA JAIME DO Jul 17, 2021 4:21 pm
[2021-07-17] MEDS ORDERED: ONDANSETRON 4 MG/2 ML (SDV) Z0FRAN ONE ×2 (16:53→22:23)
[2021-07-17] MEDS ORDERED: ONDANSETRON 4 MG/2 ML (SDV) Z0FRAN IVP ONE (17:00)
[2021-07-17] MEDS ORDERED: LIDOCAINE/EPI 2% 1:200,00 (XYLOCAINE) 20 ML VIAL ONE (19:13)
[2021-07-17] MEDS ORDERED: D5 LR IV SOLUTION 1,000 ML IV ONE (21:17)
[2021-07-17] MEDS ORDERED: CITRIC ACID/SOB CIT (BICITRA) 30 ML UDC ONE (21:54)
[2021-07-17] MEDS ORDERED: ceFAZolin 2 GM IV Premixed 50 ML ONE (21:54)
[2021-07-17] MEDS ORDERED: METOCLOPRAMIDE INJ 10 MG/2 ML (REGLAN) ONE (21:54)
[2021-07-17] MEDS ORDERED: FAMOTIDINE 20MG/2ML IV (PEPCID) ONE (21:54)
[2021-07-17] MEDS ORDERED: ONDANSETRON 4 MG/2 ML (SDV) Z0FRAN IVP PRN (22:00)
[2021-07-17] MEDS ORDERED: MEASLES,MUMPS,RUBELLA 1 EA INJ SC SCH (22:00)
[2021-07-17] MEDS ORDERED: NALOXONE 0.4 MG/ML 1 ML (NARCAN) VIAL IV PRN ×3 (22:00→23:45)
[2021-07-17] MEDS ORDERED: TETANUS,DIPTH,PERTUSS P/F (BOOSTRIX) 0.5 ML VIAL IM SCH (22:00)
--- NOTE | 2021-07-17 22:10 | Progress Note ---
Standard Progress Note Progress Notes/Assess & Plan Date Seen by a Provider: Jul 17, 2021 Time Seen by a Provider: 10:05 Progress/Assessment & Plan Patient admitted for IOL, AROM and Pitocin used for augmentation, she progressed to 5 cm with IV dilaudid used twice throughout the labor, no epidural. She has been 5 cm for the past 5 hours and has become frustrated. Due to failure to progress discussed primary , risk vs continued induction discussed and patient was agreeable to proceed. REBECCA GARCIA DO Jul 17, 2021 22:10
[2021-07-17] MEDS ORDERED: fentaNYL INJ 100 MCG/2 ML AMP ONE (22:23)
[2021-07-17] MEDS ORDERED: OXYTOCIN PRE-MIX DRIP 1,000 ML IV ONE (22:23)
--- NOTE | 2021-07-17 22:27 | Discharge Inst-Women's Service ---
Discharge Inst-Women's Serv Depart Medication/Instructions New, Converted or Re-Newed RX: RX on Chart Final Diagnosis POD 2 PLTCS Problems Reviewed?: Yes Consults/Follow Up Additional Follow Up: Yes Orders/Referrals Yesi in 7-[address] Castro in 6 weeks Activity Activity: Activity as Tolerated Driving Instructions: No Driving for 1 Week NO SMOKING: NO SMOKING Nothing Inside Vagina: No Douching, No Neville, No Tampons Diet Discharge Diet: No Restrictions Symptoms to Report to : Bleeding Excessive, Pain Increased, Fever Over 101 Degrees F, Vaginal Bleeding Increase, Questions/Concerns For Any Problems or Questions: Contact Your Physician Skin/Wound Care Infection Signs and Symptoms: Increased Redness, Foul Odor of Wound, Increased Drainage, Skin Itchy or Has a Rash, Increased Swelling, Temperature Above 101 F Operative Area Clean and Dry: Keep Incision Clean/Dry Stitches/[place]/Dermabond: Dermabond, Care of Stitches Bathing Instructions: REBECCA Payne DO Jul 17, 2021 22:27
[2021-07-17] MEDS ORDERED: IBUP-844 PO (22:28)
[2021-07-17] MEDS ORDERED: DCS100C PO (22:28)
[2021-07-17] MEDS ORDERED: ACHD5005 PO (22:28)
[2021-07-17] MEDS ORDERED: MIDAZOLAM 2 MG/2 ML (VERSED) VIAL ONE (22:53)
[2021-07-17] MEDS ORDERED: BUPIVACAINE 0.5% 30 ML (SENSORCAINE) VIAL ONE (23:11)
[2021-07-17] MEDS: KETOROLAC 30 MG/ML VIAL IV SCH (23:15)
[2021-07-17] MEDS ORDERED: ONDANSETRON 4 MG/2 ML (SDV) Z0FRAN IV PRN (23:45)
[2021-07-17] MEDS ORDERED: METOCLOPRAMIDE INJ 10 MG/2 ML (REGLAN) IV PRN (23:45)
[2021-07-17] MEDS ORDERED: diphenhydrAMINE 50 MG/ML INJ (BENADRYL) IV PRN (23:45)
[2021-07-18] VITALS (8 sets, daily range): BP systolic 109–133; BP diastolic 58–85
[2021-07-18] MEDS: OXYTOCIN PRE-MIX DRIP 500 ML IV SCH ×2 (00:15→04:32)
[2021-07-18] MEDS ORDERED: FAMOTIDINE 20MG/2ML IV (PEPCID) IV ONE (01:15)
[2021-07-18] MEDS ORDERED: METOCLOPRAMIDE INJ 10 MG/2 ML (REGLAN) IV ONE (01:15)
[2021-07-18] MEDS ORDERED: LACTATED RINGERS 1,000 ML IV PRN (01:15)
[2021-07-18] MEDS ORDERED: CITRIC ACID/SOB CIT (BICITRA) 30 ML UDC PO ONE (01:15)
[2021-07-18] MEDS: HYDROcodone/APAP 5 MG/325 MG (LORTAB) TAB PO PRN ×4 (03:01→21:27)
[2021-07-18] MEDS: CATHETER FLUSH 10 ML SYR IV SCH ×4 (04:25→05:13)
[2021-07-18] MEDS: D5 LR IV SOLUTION 1,000 ML IV SCH (04:27)
--- NOTE | 2021-07-18 04:28 | OPERATIVE REPORT ---
DATE OF SERVICE: PREOPERATIVE DIAGNOSES: 1. A 30-year-old G4, P3 at 37 weeks and 6 days' gestation. 2. Poorly controlled gestational hypertension. 3. Failure to progress. POSTOPERATIVE DIAGNOSES: 1. A 30-year-old G4, P3 at 37 weeks and 6 days' gestation. 2. Poorly controlled gestational hypertension. 3. Failure to progress. PROCEDURE: Primary low transverse section. SURGEON: Rommel Garcia DO ANESTHESIA: Spinal. ESTIMATED BLOOD LOSS: 500 mL. URINE OUTPUT: 150 mL clear at the end of procedure. FLUIDS: 1500 mL lactated Ringer's solution. FINDINGS: A live male weighing 7 pounds 1 ounce, Apgars of 9 and 9. Grossly normal appearing uterus, bilateral fallopian tubes and ovaries. SPECIMEN SENT: Placenta. INDICATIONS FOR PROCEDURE: 1. A 30-year-old female who is brought in for induction of labor for uncontrolled gestational hypertension. Artificial rupture of membranes and Pitocin augmentation was used as my induction method. This morning, she progressed from 2 cm on presentation to 5 cm and remained 5 cm for the next 5 hours. Due to failure to progress and arrest of dilation, I discussed with the patient proceeding with . She was ready to proceed with this as she was becoming frustrated. Risks of the procedure versus continued labor course was discussed with the patient in detail. After all her questions were answered, consent was obtained in the preoperative area and the patient was taken to the operating room. OPERATIVE REPORT IN DETAIL: Once in the operating room, spinal analgesia was found to be adequate, the patient was placed in the supine position with leftward tilt, prepped and draped in normal sterile fashion. A timeout was performed. Anesthesia was then tested. I then make a Pfannenstiel skin incision with a knife and carried down to underlying fascia using Bovie cautery. The fascial incision extended laterally using Bovie cautery. The superior aspect of the fascial incision was then grasped with Vincent clamps, tented up and dissected off the underlying rectus muscles. The inferior aspect of the fascial incision was then grasped with Vincent clamps, tented up and dissected off the underlying rectus muscles. The rectus muscles were then dissected down the midline using sharp dissection, which exposed the peritoneum, which I entered bluntly and extended using blunt traction. An Daren ring retractor was placed within the peritoneal incision, which offers excellent lateral sidewall retraction. I identified the lower uterine segment, which was found to be thinned out and make a low transverse incision through the vesicouterine peritoneum and bluntly dissected off the lower uterine segment, creating a bladder flap. I then proceeded with my myotomy until membranes were visualized, at which point I extended the uterine incision laterally and superiorly using bandage scissors. Amniotomy was performed through the incision using Allis clamp. Clear fluid was noted. Infant was found in vertex presentation. With gentle fundal pressure, the infant's head was elevated up the incision where it was delivered through the incision. The nares and oropharynx were bulb suctioned. Anterior and posterior shoulders were delivered and the infant was then brought to the operative field with cord was doubly clamped and cut and was handed off to waiting nurses in attendance. Cord blood was collected, 3-vessel cord with intact placenta was delivered spontaneously thereafter. IV Pitocin is initiated to facilitate uterine contraction. Uterine fundus confirmed by manual massage. The uterus was then exteriorized and cleared of all endometrial clots and debris. I then proceeded with closing the uterine incision using 0 Vicryl suture in running locked fashion. Second layer of imbricating 0 Monocryl was placed. Excellent hemostasis was noted during this. I then placed the uterus back within the pelvis and copiously irrigated the pelvis using normal saline. Once again, there was no active bleeding noted from any of my dissection planes. I placed Interceed antiadhesive over my low transverse incision and then proceeded with removing the Daren ring retractor and closing the peritoneum using 3-0 Vicryl suture in running fashion. Rectus muscle reapproximated using 3-0 Vicryl suture in interrupted fashion. The fascia was reapproximated using 0 Vicryl suture in a running fashion. The subcutaneous tissue was reapproximated using 3-0 plain interrupted subcutaneous stitch and skin reapproximated using 4-0 Monocryl running subcuticular. Dermabond was applied to incision and sterile dressing with adhesive white tape. The patient tolerated the procedure well and was taken to recovery area in stable condition. Lap and sponge counts were correct at the end of the procedure. Instrument count was correct as well. Two grams of Ancef given preoperatively for infection prophylaxis. Job ID: [id number] DocumentID: [id number] Dictated Date: 07/17/2021 23:17:05 Motor Coach Driver Date: 07/18/2021 04:28:21 Dictated By: ROMMEL GARCIA DO
[2021-07-18] MEDS: KETOROLAC 30 MG/ML VIAL IV SCH ×2 (05:14→12:14)
[2021-07-18 06:09] LABS: BASOPHILS % (AUTO) 0 % (0-10); EOSINOPHILS % (AUTO) 0 % (0-10); HEMATOCRIT 36 % (35-52); HEMOGLOBIN 12.6 g/dL (11.5-16.0); LYMPHOCYTES # (AUTO) 1.9 10^3/uL (1.0-4.0); LYMPHOCYTES % (AUTO) 14 % (12-44); MEAN CORPUSCULAR HEMOGLOBIN 31 pg (25-34); MEAN CORPUSCULAR HGB CONC 35 g/dL (32-36); MEAN CORPUSCULAR VOLUME 90 fL (80-99); MEAN PLATELET VOLUME 10.8 fL (9.0-12.2); MONOCYTES # (AUTO) 0.3 10^3/uL (0.0-1.0); MONOCYTES % (AUTO) 2 % (0-12); NEUTROPHILS # (AUTO) 11.4 10^3/uL (1.8-7.8); NEUTROPHILS % (AUTO) 84 % (42-75); PLATELET COUNT 220 10^3/uL (130-400); WHITE BLOOD COUNT 13.6 10^3/uL (4.3-11.0)
--- NOTE | 2021-07-18 08:09 | Postpartum Progress Note ---
Note Note Day # 1 Subjective: Patient is without complaints. Ambulating, voiding. Tolerating a regular diet without nausea or vomiting. Normal lochia. Pain is well controlled with oral pain medications. Objective: Physical Exam: General - Alert and oriented, no apparent distress Abdomen - Soft, appropriately tender to palpation, non-distended, fundus firm at umbilicus Extremities - no edema, negative Tiesha's bilaterally Incision- c/d/i Assessment: POD 1 PLTCS Plan: Routine care. Encourage breast feeding. Encourage ambulation. Ferrous sulfate supplementation. Plan for discharge tomorrow Vitals - Labs Vital Signs - I&O Vital Signs Date Time Temp Pulse Resp B/P (MAP) Pulse Ox O2 Delivery O2 Flow Rate FiO2 07/18/21 03:37 36.3 60 18 111/77 (88) 96 Room Air 07/18/21 00:20 36.2 18 109/68 (82) 100 Room Air 07/18/21 00:20 Room Air 07/18/21 00:15 36.8 74 18 121/58 (79) 100 Room Air 07/18/21 00:15 Room Air 07/18/21 00:10 18 109/68 (82) 100 Room Air 07/18/21 00:00 Room Air 07/18/21 00:00 18 110/81 (91) 100 Room Air 07/17/21 23:50 20 106/75 (85) 100 Room Air 07/17/21 23:45 Room Air 07/17/21 23:40 20 110/65 (80) 100 Room Air 07/17/21 23:34 Room Air 07/17/21 23:34 36.3 20 106/77 (87) 100 Room Air 07/17/21 22:22 71 18 118/72 (87) Room Air 07/17/21 22:15 71 18 118/72 (87) 99 Room Air 07/17/21 22:00 70 18 121/77 (92) 99 Room Air 07/17/21 21:45 71 18 122/77 (92) 100 Room Air 07/17/21 21:30 68 18 128/79 (95) 99 Room Air 07/17/21 21:15 36.8 68 18 153/86 (108) 98 Room Air 07/17/21 21:00 36.8 68 18 108/67 (81) 98 Room Air 07/17/21 20:45 68 18 115/70 (85) 98 Room Air 07/17/21 20:30 69 18 98 Room Air 07/17/21 20:15 18 Room Air 07/17/21 20:00 62 18 135/89 (104) Room Air 07/17/21 19:45 Room Air 07/17/21 19:30 Room Air 07/17/21 19:15 61 115/69 (84) Room Air 07/17/21 19:00 61 115/69 (84) Room Air 07/17/21 18:45 62 121/66 (84) Room Air 07/17/21 18:30 67 107/69 (82) Room Air 07/17/21 18:13 59 118/71 (87) Room Air 07/17/21 18:00 57 118/71 (87) Room Air 07/17/21 17:45 66 119/76 (90) Room Air 07/17/21 17:30 66 118/71 (87) Room Air 07/17/21 17:15 65 105/62 (76) Room Air 07/17/21 17:00 68 115/77 (90) Room Air 07/17/21 16:45 71 16 126/78 (94) Room Air 07/17/21 16:30 64 16 123/78 (93) Room Air 07/17/21 16:15 36.3 64 138/79 (98) Room Air 07/17/21 16:00 63 127/74 (91) Room Air 07/17/21 15:45 62 124/82 (96) Room Air 07/17/21 15:30 75 135/87 (103) Room Air 07/17/21 15:15 62 119/76 (90) Room Air 07/17/21 15:00 67 118/72 (87) Room Air 07/17/21 14:45 63 119/73 (88) Room Air 07/17/21 14:30 59 18 114/71 (85) Room Air 07/17/21 14:15 62 121/76 (91) Room Air 07/17/21 14:00 75 124/77 (93) Room Air 07/17/21 13:45 36.3 68 119/73 (88) Room Air 07/17/21 13:30 80 122/90 (101) Room Air 07/17/21 13:15 72 119/82 (94) Room Air 07/17/21 13:00 72 119/72 (88) Room Air 07/17/21 12:45 68 118/68 (85) Room Air 07/17/21 12:30 Room Air 07/17/21 12:15 73 126/75 (92) Room Air 07/17/21 12:00 66 16 112/69 (83) Room Air 07/17/21 11:45 36.5 74 16 111/69 (83) Room Air 07/17/21 11:30 82 113/72 (86) Room Air 07/17/21 11:00 62 116/69 (85) Room Air 07/17/21 10:45 62 123/73 (90) Room Air 07/17/21 10:30 71 115/68 (84) Room Air 07/17/21 10:15 71 115/68 (84) Room Air 07/17/21 10:00 68 16 109/72 (84) Room Air 07/17/21 09:45 68 16 117/71 (86) Room Air 07/17/21 09:30 35.9 85 16 128/79 (95) Room Air 07/17/21 09:20 68 116/74 (88) Room Air 07/17/21 09:05 73 118/74 (89) Room Air 07/17/21 08:50 75 116/76 (89) Room Air 07/17/21 08:30 80 16 119/79 (92) Room Air 07/17/21 08:13 36.2 88 16 98 Room Air I & O 07/18/21 07:00 Intake Total 1050 ml Output Total 775 ml Balance 275 ml Labs Laboratory Tests 07/18/21 05:21: White Blood Count 13.6H, Red Blood Count 4.01, Hemoglobin 12.6, Hematocrit 36, Mean Corpuscular Volume 90, Mean Corpuscular Hemoglobin 31, Mean Corpuscular Hemoglobin Concent 35, Red Cell Distribution Width 13.5, Platelet Count 220, Mean Platelet Volume 10.8, Immature Granulocyte % (Auto) 0, Neutrophils (%) (Auto) 84H, Lymphocytes (%) (Auto) 14, Monocytes (%) (Auto) 2, Eosinophils (%) ( Auto) 0, Basophils (%) (Auto) 0, Neutrophils # (Auto) 11.4H, Lymphocytes # (Auto) 1.9, Monocytes # (Auto) 0.3, Eosinophils # (Auto) 0.0, Basophils # (Auto) 0.0, Immature Granulocyte # (Auto) 0.1 REBECCA GARCIA DO Jul 18, 2021 08:09
[2021-07-18] MEDS: DOCUSATE SODIUM 100 MG (COLACE) CAP PO SCH ×2 (08:55→21:27)
--- NOTE | 2021-07-18 10:37 | Anesthesia-Regional Post-Op ---
Regional Patient Condition Mental Status: Alert, Oriented x3 Circulation: Same as Pre-Op Headache: Absent Sensation: Full Recovery Motor Block: Absent Post Op Complications Complications None Follow Up Care/Instructions Patient Instructions None needed. Anesthesia/Patient Condition Patient is doing well, no complaints, stable vital signs, no apparent adverse anesthesia problems. No complications reported per nursing. MITESH HENLEY CRNA Jul 18, 2021 10:37
[2021-07-18] MEDS ORDERED: COVID-19 VACC,MRNA(MODERNA)/PF 100 MCG/0.5 ML VIAL IM ONE (18:00)
[2021-07-18] MEDS ORDERED: IBUPROFEN 600 MG (MOTRIN) TAB PO ONE (18:34)
[2021-07-18] MEDS: IBUPROFEN 600 MG (MOTRIN) TAB PO SCH (18:37)
[2021-07-19] VITALS: BP 115/70
[2021-07-19] MEDS: IBUPROFEN 600 MG (MOTRIN) TAB PO SCH ×3 (00:23→11:38)
[2021-07-19] MEDS: HYDROcodone/APAP 5 MG/325 MG (LORTAB) TAB PO PRN ×2 (03:07→08:30)
[2021-07-19] MEDS: D5 LR IV SOLUTION 1,000 ML IV SCH (03:20)
[2021-07-19] MEDS: CATHETER FLUSH 10 ML SYR IV SCH ×5 (03:23→06:07)
[2021-07-19] MEDS: KETOROLAC 30 MG/ML VIAL IV SCH (03:39)
[2021-07-19 06:08] VITALS: BP 121/74
[2021-07-19 08:15] VITALS: BP 111/76
[2021-07-19] MEDS: DOCUSATE SODIUM 100 MG (COLACE) CAP PO SCH (08:28)
--- NOTE | 2021-07-19 10:58 | Progress Note ---
Standard Progress Note Progress Notes/Assess & Plan Date Seen by a Provider: Jul 19, 2021 Time Seen by a Provider: 10:57 Progress/Assessment & Plan This patient is without complaint. She is ambulating, voiding, tolerating oral intake well and has good pain control. Patient is requesting discharge home. Vital Signs Date Time Temp Pulse Resp B/P (MAP) Pulse Ox O2 Delivery O2 Flow Rate FiO2 07/19/21 08:15 36.3 62 18 111/76 (88) 97 Room Air 07/19/21 06:08 36.4 80 16 121/74 (90) 99 Room Air 07/19/21 00:00 36.3 62 16 115/70 (85) 95 Room Air 07/18/21 20:00 36.5 79 16 124/69 (87) 98 Room Air 07/18/21 15:00 36.8 60 16 133/85 (101) Room Air Vital signs are stable. Patient is afebrile. The abdomen is benign. The surgical incision is clean dry and intact. Extremities show no clubbing cyanosis. There is no Homans' sign. Assessment and plan Post operative day #2 status post primary delivery doing well. Plan is for discharge home with follow-up in clinic Final Diagnosis Term primary delivery ELLIOT CARVALHO MD Jul 19, 2021 10:58
[2021-07-19 12:20] VITALS: BP 111/76
== END 2021-07-19 12:20 | disposition home or self-care (01) | DRG 788 ==
LOC: LDRP 06:55
PROVIDERS: ADMIT Obstetrics & Gynecology; ATTEND Obstetrics & Gynecology
PROC: 10907ZC Drainage of Amniotic Fluid, Therapeutic from Products of Conception, Via Natural or Artificial Opening (ICD-10-PCS; 2021-07-17)
PROC: 10D00Z1 Extraction of Products of Conception, Low, Open Approach (ICD-10-PCS; principal; 2021-07-17 22:23)
DX: O13.4 Gestational [pregnancy-induced] hypertension without significant proteinuria, complicating childbirth (principal); Z3A.37 37 weeks gestation of pregnancy; Z37.0 Single live birth; O62.0 Primary inadequate contractions; Z79.899 Other long term (current) drug therapy
CPT/HCPCS: 36415; 85025; 86850; 86900; 86901; 91301

== ENCOUNTER 2021-09-18 05:37 | Outpatient (CLI) | payer MEDICAID ==
[~2021-09-18] VITALS: Ht 167.7 cm; Wt 90.0 kg
[~2021-09-18 05:37] MED LIST changes: +ASPI-999 PO; -DCS100C PO; +DOCU-239 PO; +IBUP-1773 PO; +LABE200T7 PO; +PREN1TAB19 PO
== END 2021-09-18 15:49 | disposition home or self-care (01) ==
LOC: PREOP 05:37
PROVIDERS: ATTEND Obstetrics & Gynecology
DX: Z01.818 Encounter for other preprocedural examination (principal)

== ENCOUNTER 2021-09-22 07:22 | Day surgery (SDC) | payer MEDICAID ==
[~2021-09-22] VITALS: Ht 167.7 cm; Wt 90.0 kg
[2021-09-22] VITALS (25 sets, daily range): BP systolic 117–197; BP diastolic 71–107
[2021-09-22] MEDS ORDERED: ceFAZolin 2 GM IV Premixed 50 ML IV ONE (07:30)
--- NOTE | 2021-09-22 07:45 | Progress Note-Pre Operative ---
Pre-Operative Progress Note H&P Reviewed The H&P was reviewed, patient examined and no changes noted. Date Seen by Provider: Sep 22, 2021 Time Seen by Provider: 08:00 Date H&P Reviewed: Sep 22, 2021 Time H&P Reviewed: 08:00 Pre-Operative Diagnosis: Rectocele REBECCA GARCIA DO Sep 22, 2021 07:45
--- NOTE | 2021-09-22 07:52 | Discharge Inst-Women's Service ---
Discharge Inst-Women's Serv Depart Medication/Instructions New, Converted or Re-Newed RX: Transmitted to Pharmacy Final Diagnosis POD 1 Posterior colporraphy Problems Reviewed?: Yes Consults/Follow Up Additional Follow Up: Yes Orders/Referrals Dr. Garcia or Yesi in 6 weeks Activity Activity: Activity as Tolerated Driving Instructions: No Driving for 1 Week NO SMOKING: NO SMOKING Nothing Inside Vagina: No Douching, No [place], No Tampons Diet Discharge Diet: No Restrictions Symptoms to Report to : Bleeding Excessive, Pain Increased, Fever Over 101 Degrees F, Vaginal Bleeding Increase, Questions/Concerns For Any Problems or Questions: Contact Your Physician REBECCA GARCIA DO Sep 22, 2021 07:52
[2021-09-22] MEDS ORDERED: ACHD5005 PO (07:54)
[2021-09-22] MEDS ORDERED: IBUP-844 PO (07:54)
[2021-09-22] MEDS ORDERED: BENZ78AE5 TP (07:54)
[2021-09-22] MEDS ORDERED: DOCU100C37 PO (07:54)
[2021-09-22] MEDS ORDERED: ONDANSETRON 4 MG/2 ML (SDV) Z0FRAN IV ONE (08:00)
[2021-09-22] MEDS ORDERED: BENZOCAINE/MENTHOL (DERMOPLAST) 56 ML CAN TP PRN (08:00)
[2021-09-22] MEDS ORDERED: SCOPOLAMINE 1.5 MG (TRANSDERM-SCOP) PATCH TOP ONE (08:00)
[2021-09-22] MEDS ORDERED: NALOXONE 0.4 MG/ML 1 ML (NARCAN) VIAL IV PRN (08:00)
[2021-09-22] MEDS ORDERED: METOCLOPRAMIDE INJ 10 MG/2 ML (REGLAN) IV PRN (08:00)
[2021-09-22] MEDS ORDERED: FAMOTIDINE 20MG/2ML IV (PEPCID) IV ONE (08:00)
[2021-09-22] MEDS: LACTATED RINGERS 1,000 ML IV PRN ×3 (08:01→14:12)
[2021-09-22] MEDS ORDERED: fentaNYL INJ 100 MCG/2 ML AMP ONE ×2 (08:03→14:10)
[2021-09-22] MEDS ORDERED: proPOfol 200 MG/20 ML (DIPRIVAN) VIAL IV ONE ×2 (08:03→14:10)
[2021-09-22] MEDS ORDERED: MIDAZOLAM 2 MG/2 ML (VERSED) VIAL ONE ×2 (08:03→14:10)
[2021-09-22] MEDS ORDERED: LIDOCAINE PF 2% 5 ML (XYLOCAINE) VIAL ONE ×2 (08:03→14:10)
[2021-09-22 08:14] LABS: BASOPHILS % (AUTO) 1 % (0-10); EOSINOPHILS # (AUTO) 0.2 10^3/uL (0.0-0.3); EOSINOPHILS % (AUTO) 2 % (0-10); HEMATOCRIT 44 % (35-52); HEMOGLOBIN 14.9 g/dL (11.5-16.0); LYMPHOCYTES # (AUTO) 4.3 10^3/uL (1.0-4.0); LYMPHOCYTES % (AUTO) 49 % (12-44); MEAN CORPUSCULAR HEMOGLOBIN 30 pg (25-34); MEAN CORPUSCULAR HGB CONC 34 g/dL (32-36); MEAN CORPUSCULAR VOLUME 88 fL (80-99); MEAN PLATELET VOLUME 10.5 fL (9.0-12.2); MONOCYTES # (AUTO) 0.5 10^3/uL (0.0-1.0); MONOCYTES % (AUTO) 6 % (0-12); NEUTROPHILS # (AUTO) 3.7 10^3/uL (1.8-7.8); NEUTROPHILS % (AUTO) 43 % (42-75); PLATELET COUNT 276 10^3/uL (130-400); WHITE BLOOD COUNT 8.7 10^3/uL (4.3-11.0)
[2021-09-22] MEDS ORDERED: NS (IVPB) 100 ML ONE (08:31)
[2021-09-22] MEDS ORDERED: VASOPRESSIN INJECTION 20 UNIT/ML VIAL ONE (08:32)
[2021-09-22] MEDS ORDERED: ESTROGENS CONJ. CREAM 30 GM (PREMARIN) TUBE ONE (08:33)
[2021-09-22] MEDS ORDERED: ONDANSETRON 4 MG/2 ML (SDV) Z0FRAN ONE ×3 (09:27→14:10)
[2021-09-22] MEDS ORDERED: VASOPRESSIN INJECTION 20 UNIT/ML VIAL SQ ONE (10:15)
[2021-09-22] MEDS ORDERED: ESTROGENS CONJ. CREAM 30 GM (PREMARIN) TUBE VG ONE (10:15)
[2021-09-22] MEDS ORDERED: HYDROmorphone 2 MG/ML VIAL (DILAUDID) ONE ×2 (10:17→13:31)
[2021-09-22] MEDS ORDERED: SEVOFLURANE (ULTANE) 15 ML INHAL SOLN ONE ×2 (10:17→15:15)
[2021-09-22] MEDS ORDERED: KETOROLAC 30 MG/ML VIAL ONE (10:45)
[2021-09-22] MEDS: KETOROLAC 30 MG/ML VIAL IV SCH ×3 (10:46→23:33)
[2021-09-22] MEDS ORDERED: morphine INJ 10 MG/ML 1ML (SYR OR VIAL) ONE (10:59)
[2021-09-22] MEDS ORDERED: HYDROmorphone 2 MG/ML VIAL (DILAUDID) IV ONE ×3 (11:00→15:30)
[2021-09-22] MEDS ORDERED: morphine INJ 10 MG/ML 1ML (SYR OR VIAL) IVP ONE (11:00)
[2021-09-22] MEDS ORDERED: LACTATED RINGERS 1,000 ML IV ONE (11:05)
[2021-09-22] MEDS: ONDANSETRON 4 MG/2 ML (SDV) Z0FRAN IVP PRN ×3 (11:12→13:34)
[2021-09-22] MEDS: HYDROcodone/APAP 5 MG/325 MG (LORTAB) TAB PO PRN ×2 (13:16→23:32)
--- NOTE | 2021-09-22 13:48 | OPERATIVE REPORT ---
DATE OF SERVICE: PREOPERATIVE DIAGNOSIS: A 31-year-old female with grade II to III rectocele. POSTOPERATIVE DIAGNOSIS: A 31-year-old female with grade II to III rectocele. PROCEDURE PERFORMED: Posterior colporrhaphy. SURGEON: Rebecca Garcia DO. ANESTHESIA: General endotracheal. ESTIMATED BLOOD LOSS: 50 mL. URINE OUTPUT: 100 mL of clear urine at the end of the procedure. FLUIDS: 1000 mL of lactated Ringer's solution. FINDINGS: A grade III rectocele, very mild cystocele. SPECIMEN SENT: None. INDICATIONS FOR PROCEDURE: This 31-year-old female is a patient, who had sought care after her last delivery in my office for concerns with a rectocele. The patient wished to have this corrected and it was causing her constipation issues and has been with the last two deliveries. She has done with childbearing and underwent permanent sterilization approximately two weeks ago and wishes to proceed with this. I discussed with the patient, the risk of the procedure including the risk of bleeding, infection and damage to surrounding structures including, but not limited to the bowel and the vagina, possible need for reoperation, hematoma formation, abscess formation, risk from anesthesia and even . After everything was discussed with the patient in detail, consent was obtained in the preoperative area and the patient was taken to the operating room. OPERATIVE REPORT IN DETAIL: Once in the operating room, general anesthesia was found to be adequate, she was placed in a dorsal lithotomy position, prepped and draped in a normal sterile fashion. A timeout was performed. Myers catheter was placed using sterile technique. I then began by infiltrating the margins of the rectocele using vasopressin, a concentration of 20 units in 100 mL of normal saline. The submucosa of the entire extent of the rectocele was infiltrated with this as well as the perineum. I then made a triangular incision on the peritoneum and took off the cutaneous tissue of this incision using a knife. I then used this incision and accessed down the submucosa down the midline using Metzenbaum scissors. I then undermined using the Metzenbaum scissors down the midline of this rectocele defect until its proximal margin is met, at which point, I elevated the lateral aspects of the incision using a T clamps and dissected the underlying rectovaginal fascia off of the underlying rectocele defect. Once this was done, I placed plicating sutures using 0 Vicryl suture in an interrupted fashion, reducing the rectocele down the midline. I then trimmed the excess vaginal mucosa and reapproximated the mucosa using 3-0 Vicryl suture in a running locked fashion to the level of the mucocutaneous junction, at which point, I did a subcuticular stitch, reapproximating the cutaneous tissue of the perineum after which there was no active bleeding noted from the vagina. I packed the vagina using Premarin-soaked vaginal packing and left the Myers catheter in place. The patient tolerated the procedure well and sent to recovery area in a stable condition. Lap and sponge counts were correct at the end of procedure. Instrument counts correct as well. Job ID: [id number] DocumentID: [id number] Dictated Date: 09/22/2021 09:12:55 Forest Worker Date: 09/22/2021 13:46:47 Dictated By: REBECCA GARCIA DO
[2021-09-22] MEDS ORDERED: NS IV 500 ML 500 ML IV SCH (14:00)
[2021-09-22] MEDS ORDERED: GLYCOPYRROLATE 0.2 MG/ML (ROBINUL) 2 ML VIAL ONE (14:10)
[2021-09-22] MEDS ORDERED: ROCURONIUM 10 MG/ML 5 ML SYRINGE IV ONE (14:10)
[2021-09-22] MEDS ORDERED: NEOSTIGMINE 3 MG/3 ML VIAL ONE (14:10)
[2021-09-22] MEDS ORDERED: ceFAZolin 2 GM IV Premixed 50 ML ONE (14:19)
--- NOTE | 2021-09-22 14:26 | Consultation ---
History of Present Illness History of Present Illness Patient Consulted On(surinder/time) 09/22/21 14:23 Date Seen by Provider: Sep 22, 2021 Time Seen by Provider: 14:00 Reason for Visit: post operative bleeding History of Present Illness I was asked to consult on a post rectocele patient of Dr. Castro that was soaking through the packing post operatively. She was examined by SHAUN Pulido and I was asked to evaluate because she continued to bleed passing clots and soaking through the packing. Yesi had already replaced the packing and she had soaked through that. She had a rectocele repair earlier in the day. Preoperatively, the hgb was 14.2 (this morning). A repeat CBC is pending Allergies and Home Medications Allergies Coded Allergies: No Known Drug Allergies (Unverified , 05/16/20) Patient Home Medication List Home Medication List Reviewed: Yes Benzocaine/Menthol (Dermoplast Pain Relieving [place]) 78 Gm Aerosol, 56 EA TP UD PRN for PAIN-MILD (1-4) Prescribed by: REBECCA CASTRO on 09/22/21753 Docusate Sodium (Docusate Sodium) 100 Mg Capsule, 100 MG PO BID PRN for CONSTIPATION-1ST LINE Prescribed by: REBECCA CASTRO on 09/22/21753 Hydrocodone Bit/Acetaminophen (HYDROcodone/APAP 5 MG/325 MG TAB) 1 Tab Tab, 1-2 EA PO Q6HR PRN for PAIN-MODERATE (5-7) Prescribed by: REBECCA CASTRO on 09/22/21753 Ibuprofen (Ibu) 600 Mg Tablet, 600 MG PO Q6HR Prescribed by: REBECCA CASTRO on 09/22/21 075 Discontinued Medications Docusate Sodium (Dok) 100 Mg Capsule, 100 MG PO BID PRN for CONSTIPATION-1ST LINE Discontinued Reason: No Longer Taking Prescribed by: REBECCA CASTRO on 07/17/212227 Hydrocodone Bit/Acetaminophen (HYDROcodone/APAP 5 MG/325 MG TAB) 1 Tab Tab, 1-2 EA PO Q6HR PRN for PAIN-MODERATE (5-7) Discontinued Reason: No Longer Taking Prescribed by: REBECCA CASTRO on 07/17/212227 Hydrocodone/Acetaminophen (Hydrocodone-Acetamin 5-325 mg) 1 Each Tablet, 1 TAB PO Q4H PRN for PAIN-MODERATE (5-7) Discontinued Reason: No Longer Taking Prescribed by: REBECCA CASTRO on 09/11/21 193 Ibuprofen (Ibu) 600 Mg Tablet, 600 MG PO Q6HR Discontinued Reason: No Longer Taking Prescribed by: REBECCA CASTRO on 07/17/21 2228 Ibuprofen (Ibuprofen) 600 Mg Tablet, 600 MG PO Q6H Discontinued Reason: No Longer Taking Prescribed by: REBECCA CASTRO on 09/11/21 193 Pantoprazole Sodium (Protonix) 40 Mg Tablet.dr, 40 MG PO DAILY Discontinued Reason: No Longer Taking Prescribed by: RONNI ROSENBAUM on 05/24/20 1504 Vit/Iron Fumarate/FA ( Vitamins Tablet) 1 Each Tablet, 1 EACH PO DAILY, (Reported) Discontinued Reason: No Longer Taking Entered as Reported by: ED NUR on 07/17/21 1016 Past Gizbtcc-Yaxtre-Psbcyx Hx Patient Social History Tobacco Use?: No Smoking Status: Former Smoker Use of E-Cig and/or Vaping dev: No Substance use?: No Immunizations Up To Date First/Initial COVID19 Vaccinat: yes Second COVID19 Vaccination Surinder: yes Third COVID19 Vaccination Date: yes Seasonal Allergies Seasonal Allergies: No Past Medical History Surgery/Hospitalization HX: Breast augmentation, T&A, knee surgery, previous 3 kidney stents, pilondial cyst, section Surgeries: Yes (tumor removed from SPINE, breast augmentation, mastopexy, KIDNEY STONES X3) Tonsillectomy, Tubal Ligation Respiratory: No Currently Using CPAP: No Currently Using BIPAP: No Cardiac: No ( induced hypertension) Hypertension Neurological: No Sexually Transmitted Disease: No HIV/AIDS: No Genitourinary: Yes Kidney Infection, Kidney Stones, UTI-Chronic Gastrointestinal: Yes Gastroesophageal Reflux, Chronic Diarrhea Musculoskeletal: Yes Back Injury Endocrine: No HEENT: No (GLASSES) Loss of Vision: Denies Hearing Impairment: Denies Cancer: No Psychosocial: Yes Anxiety Integumentary: No Blood Disorders: No Adverse Reaction/Blood Tranf: No (N/A) Family Medical History Patient reports no known family medical history. No Pertinent Family Hx Review of Systems-General Constitutional: no symptoms reported Physical Exam-General Problems Physical Exam Vital Signs Vital Signs - First Documented 09/22/21 07:25 Temp 36.3 Pulse 72 Resp 16 B/P (MAP) 132/101 (111) Pulse Ox 98 O2 Delivery Room Air Capillary Refill : Genital/Rectal: other (currently with packing and soaked through, exam deferred to anesthesia) Assessment/Plan Assessment/Plan Admission Diagnosis/Plan 1. post operative vaginal hemorrhage Plan return to surgery today for exam under anesthesia, possible revision of inciaion Admission Status: Other (Same Day Surgery) TITI KEMP DO Sep 22, 2021 14:26
[2021-09-22 14:42] LABS: BASOPHILS % (AUTO) 0 % (0-10); EOSINOPHILS % (AUTO) 0 % (0-10); HEMATOCRIT 40 % (35-52); HEMOGLOBIN 13.4 g/dL (11.5-16.0); LYMPHOCYTES # (AUTO) 1.6 X 10^3 (1.0-4.0); LYMPHOCYTES % (AUTO) 11 % (12-44); MEAN CORPUSCULAR HEMOGLOBIN 30 pg (25-34); MEAN CORPUSCULAR HGB CONC 34 g/dL (32-36); MEAN CORPUSCULAR VOLUME 89 fL (80-99); MEAN PLATELET VOLUME 10.3 fL (9.0-12.2); MONOCYTES # (AUTO) 0.1 X 10^3 (0.0-1.0); MONOCYTES % (AUTO) 1 % (0-12); NEUTROPHILS # (AUTO) 12.3 X 10^3 (1.8-7.8); NEUTROPHILS % (AUTO) 87 % (42-75); PLATELET COUNT 279 10^3/uL (130-400); WHITE BLOOD COUNT 14.1 10^3/uL (4.3-11.0)
--- NOTE | 2021-09-22 14:57 | Operative Report ---
Operative Report Date of Procedure/Surgery Sep 22, 2021 Surgeon (s) TITI KEMP DO Anatomy Teacher (s): MESFIN Pulido Post-Operative Diagnosis post operative incisional bleeding, post operative hematoma Procedure Performed exam under anesthesia, revision of incision Description of Procedure Anesthesia Type: General Estimated blood loss (mL): 250 Specimen(s) collected/removed none Description of the Procedure With informed consent the patient was taken to the operating room where general anesthesia was found to be adequate. She was then prepped and draped in the usual sterile fashion in the dorsolithotomy position. A Myers catheter was already in the bladder. Multiple clots were removed from the patient's vagina and then there was active bleeding noted. A speculum was now placed and there was bleeding noted from the apex of the previous incision. I examined the rest of the sutures and incision and there did not appear to be disrupted sutures. I then used 2-0 Vicryl to close the 3 cm opening in the incision and then reinforced the rest of the incision with a running 2-0 suture. The vagina was now irrigated and there was no more bleeding. Vaginal estrogen was placed and the vagina was packed with a vaginal pack. The patient was awakened and taken to the recovery room in stable condition. Sponge, needle and instrument counts correct times two. Findings of the Procedure There was a large amount (> 200 ml) clotted blood in the vagina, followed by free flowing blood. There was about 3 cm of the apex of the incision that was not sutured. It did not appear that the incision had disrupted but rather was bleeding from the apex. Allergies and Home Medications Allergies Coded Allergies: No Known Drug Allergies (Unverified , 05/16/20) Patient Home Medication List Home Medication List Reviewed: Yes Benzocaine/Menthol (Dermoplast Pain Relieving [place]) 78 Gm Aerosol, 56 EA TP UD PRN for PAIN-MILD (1-4) Prescribed by: REBECCA GARCIA on 09/22/21 0754 Docusate Sodium (Docusate Sodium) 100 Mg Capsule, 100 MG PO BID PRN for CONSTIPATION-1ST LINE Prescribed by: REBECCA GARCIA on 09/22/21 0754 Hydrocodone Bit/Acetaminophen (HYDROcodone/APAP 5 MG/325 MG TAB) 1 Tab Tab, 1-2 EA PO Q6HR PRN for PAIN-MODERATE (5-7) Prescribed by: REBECCA GARCIA on 09/22/21753 Ibuprofen (Ibu) 600 Mg Tablet, 600 MG PO Q6HR Prescribed by: REBECCA GARCIA on 09/22/21753 Discontinued Medications Docusate Sodium (Dok) 100 Mg Capsule, 100 MG PO BID PRN for CONSTIPATION-1ST LINE Discontinued Reason: No Longer Taking Prescribed by: REBECCA GARCIA on 07/17/212227 Hydrocodone Bit/Acetaminophen (HYDROcodone/APAP 5 MG/325 MG TAB) 1 Tab Tab, 1-2 EA PO Q6HR PRN for PAIN-MODERATE (5-7) Discontinued Reason: No Longer Taking Prescribed by: REBECCA GARCIA on 07/17/212227 Hydrocodone/Acetaminophen (Hydrocodone-Acetamin 5-325 mg) 1 Each Tablet, 1 TAB PO Q4H PRN for PAIN-MODERATE (5-7) Discontinued Reason: No Longer Taking Prescribed by: REBECCA GARCIA on 09/11/211936 Ibuprofen (Ibu) 600 Mg Tablet, 600 MG PO Q6HR Discontinued Reason: No Longer Taking Prescribed by: REBECCA GARCIA on 07/17/212227 Ibuprofen (Ibuprofen) 600 Mg Tablet, 600 MG PO Q6H Discontinued Reason: No Longer Taking Prescribed by: REBECCA GARCIA on 09/11/211936 Pantoprazole Sodium (Protonix) 40 Mg Tablet.dr, 40 MG PO DAILY Discontinued Reason: No Longer Taking Prescribed by: RONNI ROSENBAUM on 05/24/20 1504 Vit/Iron Fumarate/FA ( Vitamins Tablet) 1 Each Tablet, 1 EACH PO DAILY, (Reported) Discontinued Reason: No Longer Taking Entered as Reported by: ED NUR on 07/17/21 1016 TITI KEMP DO Sep 22, 2021 14:57
[2021-09-22 14:58] LABS: PROTHROMBIN TIME PATIENT 13.9 SEC (12.2-14.7)
[2021-09-22 14:59] LABS: BAND NEUTROPHILS 0 %; BASOPHILS % (MANUAL) 0 %; EOSINOPHILS % (MANUAL) 0 %; LYMPHOCYTES % (MANUAL) 8 %; MONOCYTES % (MANUAL) 0 %; NEUTROPHILS % (MANUAL) 92 %; RBC MORPH NORMAL
[2021-09-22] MEDS ORDERED: fentaNYL INJ 100 MCG/2 ML AMP IVP ONE (15:30)
[2021-09-22] MEDS ORDERED: ONDANSETRON 4 MG/2 ML (SDV) Z0FRAN IVP PRN ×2 (15:30→18:30)
[2021-09-22] MEDS ORDERED: LORazepam INJ 2 MG/ML (ATIVAN) VIAL ONE (16:41)
[2021-09-22] MEDS ORDERED: LORazepam INJ 2 MG/ML (ATIVAN) VIAL IVP PRN (16:45)
[2021-09-22] MEDS: D5 LR IV SOLUTION 1,000 ML IV SCH (17:03)
[2021-09-22] MEDS: HYDROmorphone 2 MG/ML VIAL (DILAUDID) IV PRN (20:46)
[2021-09-23] MEDS: HYDROmorphone 2 MG/ML VIAL (DILAUDID) IV PRN (00:05)
[2021-09-23 03:09] VITALS: BP 112/64
[2021-09-23] MEDS: HYDROcodone/APAP 5 MG/325 MG (LORTAB) TAB PO PRN ×2 (04:18→10:07)
[2021-09-23] MEDS: KETOROLAC 30 MG/ML VIAL IV SCH (04:19)
[2021-09-23 09:00] VITALS: BP 123/75
[2021-09-23] MEDS ORDERED: DOCUSATE SODIUM 100 MG (COLACE) CAP PO SCH (09:00)
[2021-09-23] MEDS: D5 LR IV SOLUTION 1,000 ML IV SCH (09:05)
--- NOTE | 2021-09-23 09:18 | Anesthesia-General Post-Op ---
General Patient Condition Mental Status/LOC: Same as Preop Cardiovascular: Satisfactory Nausea/Vomiting: Absent Respiratory: Satisfactory Pain: Controlled Complications: Absent Post Op Complications Complications None Follow Up Care/Instructions Patient Instructions None needed. Anesthesia/Patient Condition Patient Condition Patient is doing well, no complaints, stable vital signs, no apparent adverse anesthesia problems. No complications reported per nursing. STACIE RAMOS CRNA Sep 23, 2021 09:18
[2021-09-23 11:15] VITALS: BP 112/64
[2021-09-23] MEDS ORDERED: IBUPROFEN 600 MG (MOTRIN) TAB PO SCH (12:00)
== END 2021-09-23 11:15 | disposition home or self-care (01) ==
LOC: SDC 07:22 → EDSTATUS 09:15 → WS 11:52 → SDC 09-23 11:15
PROVIDERS: ATTEND Obstetrics & Gynecology
DX: N81.6 Rectocele (principal); K21.9 Gastro-esophageal reflux disease without esophagitis; F32.9 Major depressive disorder, single episode, unspecified; Z82.49 Family history of ischemic heart disease and other diseases of the circulatory system; Z90.89 Acquired absence of other organs; Z98.890 Other specified postprocedural states
CPT/HCPCS: 36415; 84703; 85007; 85025; 85027; 85240; 85245; 85246; 85247; 85610; 85730; 86850; 86900; 86901; 86920; 87081

== ENCOUNTER → 2022-09-04 | Outpatient (CLI) | payer MEDICAID ==
[~2022-09-04] MED LIST changes: +CATHETER FLUSH 10 ML SYR IV PRN; +DOCU100C37 PO; +IOHEXOL 350 MG/ML 100 ML (OMNIPAQUE 350) VIAL IV ONE; +LABE200T10 PO; -LABE200T7 PO; +NS 100 ML (IVPB) BAG IV ONE
--- NOTE | 2022-09-04 18:15 | Diagnostic Imaging Report ---
PROCEDURE: CT abdomen and pelvis with contrast. TECHNIQUE: Multiple contiguous axial images were obtained through the abdomen and pelvis after administration of intravenous contrast. Auto Exposure Controls were utilized during the CT exam to meet ALARA standards for radiation dose reduction. All CT scans use one or more of the following dose optimizing techniques: Automated exposure control, MA and/or KvP adjustment based on patient size and exam type or iterative reconstruction. INDICATION: History of hernia. Presurgical evaluation. COMPARISON: None. FINDINGS: Included portions of the lung bases are clear. CT ABDOMEN: Normal appendix is identified. Small bowel loops are nondistended. Nonobstructive right renal calculus is noted. No other renal or ureteral calculi are seen on either side. Additionally, there is no hydroureteronephrosis or other evidence of obstruction. Kidneys have an otherwise unremarkable CT appearance. The adrenal glands, spleen, pancreas, and liver have a normal CT appearance as well. There is no loculated fluid collection, free fluid, or free air. No abnormal mesenteric or retroperitoneal adenopathy is seen. Fat-containing umbilical hernia is present. Ostium measures 9 mm in diameter. Osseous structures show no acute abnormalities. CT PELVIS: Urinary bladder is unopacified. No calculi are seen within the urinary bladder. Left ovarian cyst measures 2.3 x 1.6 cm. There is no loculated fluid collection, free fluid, or free air within the pelvis. No abnormal lymph nodes are identified. Osseous structures show no acute abnormalities. IMPRESSION: 1. Small fat-containing umbilical hernia. 2. Small left ovarian cyst. 3. Nonobstructive right renal calculus. Dictated by: Dictated on workstation # [id number]
== END ==
LOC: RAD 15:35
PROVIDERS: ATTEND Surgery
DX: K42.9 Umbilical hernia without obstruction or gangrene (principal); N83.202 Unspecified ovarian cyst, left side; N20.0 Calculus of kidney
CPT/HCPCS: 74177

== ENCOUNTER 2022-09-09 08:08 | Outpatient (CLI) | payer MEDICAID ==
[~2022-09-09] VITALS: Ht 170 cm; Wt 70.5 kg
[~2022-09-09 08:08] MED LIST changes: -CATHETER FLUSH 10 ML SYR IV PRN; -IOHEXOL 350 MG/ML 100 ML (OMNIPAQUE 350) VIAL IV ONE; -NS 100 ML (IVPB) BAG IV ONE
[2022-09-09] MEDS ORDERED: IBUP-1780 PO (13:05)
[2022-09-09] MEDS ORDERED: BIOTIN (13:05)
[2022-09-09] MEDS ORDERED: MULTIVITAMIN (13:05)
[2022-09-09] MEDS ORDERED: PAIN BC (13:05)
== END 2022-09-09 13:34 | disposition home or self-care (01) ==
LOC: PREOP 08:08
PROVIDERS: ATTEND Surgery
DX: Z01.818 Encounter for other preprocedural examination (principal)

== ENCOUNTER 2022-09-11 08:13 | Day surgery (SDC) | payer MEDICAID ==
[~2022-09-11] VITALS: Ht 170 cm; Wt 70.5 kg
[2022-09-11] VITALS (10 sets, daily range): BP systolic 113–144; BP diastolic 77–101
[~2022-09-11 08:13] MED LIST changes: +BIOTIN; +IBUP-1780 PO; +MULTIVITAMIN; +PAIN BC
[2022-09-11] MEDS ORDERED: LIDOCAINE/EPI 2% 1:200,00 (XYLOCAINE) 10 ML VIAL ONE (08:38)
[2022-09-11] MEDS ORDERED: NS (IVPB) 50 ML ONE (08:56)
[2022-09-11] MEDS ORDERED: ceFAZolin INJECTION 2,000 MG ONE (08:56)
[2022-09-11] MEDS ORDERED: LACTATED RINGERS 1,000 ML IV PRN (09:00)
[2022-09-11] MEDS ORDERED: ceFAZolin INJECTION 2,000 MG in NS (IVPB) 50 ML IV ONE (09:00)
--- NOTE | 2022-09-11 09:02 | Progress Note-Pre Operative ---
Pre-Operative Progress Note Date of Available H&P: Sep 08, 2022 Date H&P Reviewed: Sep 11, 2022 Time H&P Reviewed: 08:53 History & Physical: H&P Reviewed, Patient Examed, No changes noted Pre-Operative Diagnosis: incarcerated umbilical hernia JEFF KNIGHT DO Sep 11, 2022 09:02
[2022-09-11] MEDS ORDERED: SCOPOLAMINE 1.5 MG (TRANSDERM-SCOP) PATCH TD ONE (09:15)
[2022-09-11] MEDS ORDERED: ONDANSETRON 4 MG/2 ML (SDV) Z0FRAN IVP ONE (09:15)
[2022-09-11] MEDS ORDERED: FAMOTIDINE 20MG/2ML IV (PEPCID) IVP ONE (09:15)
[2022-09-11] MEDS ORDERED: fentaNYL INJ 100 MCG/2 ML AMP ONE (09:16)
[2022-09-11] MEDS ORDERED: LIDOCAINE PF 2% 5 ML (XYLOCAINE) VIAL ONE (09:16)
[2022-09-11] MEDS ORDERED: ONDANSETRON 4 MG/2 ML (SDV) Z0FRAN ONE ×2 (09:16→09:22)
[2022-09-11] MEDS ORDERED: SEVOFLURANE (ULTANE) 15 ML INHAL SOLN ONE ×2 (09:16→10:51)
[2022-09-11] MEDS ORDERED: proPOfol 200 MG/20 ML (DIPRIVAN) VIAL IV ONE (09:16)
[2022-09-11] MEDS ORDERED: ROCURONIUM 10 MG/ML 5 ML SYRINGE IV ONE (09:16)
[2022-09-11] MEDS ORDERED: MIDAZOLAM 2 MG/2 ML (VERSED) VIAL ONE (09:16)
[2022-09-11] MEDS ORDERED: SCOPOLAMINE 1.5 MG (TRANSDERM-SCOP) PATCH ONE (09:23)
[2022-09-11] MEDS ORDERED: FAMOTIDINE 20MG/2ML IV (PEPCID) ONE (09:23)
[2022-09-11] MEDS ORDERED: KETOROLAC 30 MG/ML VIAL ONE (10:41)
[2022-09-11] MEDS ORDERED: NEOSTIGMINE 3 MG/3 ML VIAL ONE (10:41)
[2022-09-11] MEDS ORDERED: GLYCOPYRROLATE 0.2 MG/ML (ROBINUL) 2 ML VIAL ONE (10:41)
[2022-09-11] MEDS ORDERED: HYDROmorphone 2 MG/ML VIAL (DILAUDID) ONE (10:59)
[2022-09-11] MEDS ORDERED: ACHD5005 PO ×2 (11:00→12:14)
--- NOTE | 2022-09-11 11:03 | Discharge Inst-Surgical ---
Discharge Inst-Surgical Depart Medication/Instructions New, Converted or Re-Newed RX: Transmitted to Pharmacy Patient Instructions Follow up Appt: Make appointment for 1 week. [phone] Instructions: No lifting greater than 20 pounds. No strenuous activity. May shower in 24 hours, no tub bath or soaking. Use incentive spirometer at home as directed. No Smoking Skin/Wound Care: May remove bandages in am. You need to leave the Dermabond on incision it will fall off on it's own. Symptoms to Report: Appetite Changes, Extremity Discoloration, Numbness/Tingling, Swelling Increased, Bleeding Excessive, Eyesight Changes, Pain Increased, Urine Color Change, Constipation(Persistent), Fever over 101 degree F, Pain/Pressure in chest, Urinating Difficulty, Cough Up/Vomit Blood, Heart Beat Irreg/Pounding, Pain/Pressure in jaw, Cramps in feet or legs, Lightheadedness, Pain/Pressure in shoulder, Diarrhea(Persistent), Memory Changes Suddenly, Questions/Concerns, Weight gain consecutive days, Dizziness/Fainting, Nausea/Vomiting, Shortness of Breath, Weight gain over 2 pounds If questions or concerns contact your physician Or seek help at emergency department. Activity Activity as Tolerated: Yes Activity Instructions: Avoid Stress to Incision Driving Instructions: No Driving/Refer to Dr. Almanza Discharge Diet: No Restrictions Diet After 24 Hours: Clear Liquid if Nauseous If Any Problems/Questions/Issu: Contact Your Physician, Go to Emergency Room Skin/Wound Care Infection Signs and Symptoms: Increased Redness, Foul Odor of Wound, Increased Drainage, Skin Itchy or Has a Rash, Increased Swelling, Temperature Above 101 F Wound Care Comment: heating pad to shoulder or neck tonight for pain Bathing Instructions: Shower Stitches/[place]/Dermabond Dis: Donitaond JEFF KNIGHT DO Sep 11, 2022 11:03
[2022-09-11] MEDS ORDERED: PROMETHAZINE INJ 25 MG/ML (PHENERGAN) AMP ONE (11:14)
[2022-09-11] MEDS ORDERED: HYDROmorphone 2 MG/ML VIAL (DILAUDID) IV ONE (11:15)
[2022-09-11] MEDS ORDERED: ONDANSETRON 4 MG/2 ML (SDV) Z0FRAN IVP PRN (11:15)
[2022-09-11] MEDS ORDERED: PROMETHAZINE INJ 25 MG/ML (PHENERGAN) AMP IVP ONE (11:45)
--- NOTE | 2022-09-11 12:06 | Anesthesia-General Post-Op ---
General Patient Condition Mental Status/LOC: Same as Preop Cardiovascular: Satisfactory Nausea/Vomiting: Absent Respiratory: Satisfactory Pain: Controlled Complications: Absent Post Op Complications Complications None Follow Up Care/Instructions Patient Instructions None needed. Anesthesia/Patient Condition Patient Condition Patient is doing well, no complaints, stable vital signs, no apparent adverse anesthesia problems. No complications reported per nursing. D/C home per [facility] [place]: Yes ADELINE SANDERS CRNA Sep 11, 2022 12:06
--- NOTE | 2022-09-11 12:27 | Progress Note-Post Operative ---
Post-Operative Progess Note Surgeon (s)/Weaver Hand (s) Surgeon JEFF KNIGHT DO Weaver Hand: Alicja Pre-Operative Diagnosis incarcerated umbilical hernia Post-Operative Diagnosis same Procedure & Operative Findings Date of Procedure 09/11/22 Procedure Performed/Findings PROCEDURE: Laparoscopic Umbilical hernia repair with mesh. COMPLICATIONS: None. INDICATIONS: The patient is a 32, female with an incarcerated umbilical hernia, which has continued to increase in size and cause discomfort. The patient was explained the risk and benefits of the procedure and wished to proceed with the procedure. Consent was signed on the chart. DESCRIPTION OF PROCEDURE: The patient was taken into the operating suite, prepped and draped in sterile fashion. Surgical pause was performed. Local anesthetic was infiltrated in left upper quadrant. A #11 blade scalpel was used to make a small skin incision. Cautery was used to dissect down to the fascia, which was then scored and divi ded the muscle, went through the posterior sheath and a balloon trocar was inserted into the abdomen. The abdomen was then insufflated. Could see fat incarcerated into the hernia defect. A 5 mm trocar was placed in the right lower quadrant and a 5 mm trocar was placed in left lower quadrant. Echo Ventralight mesh was then inserted in the abdomen grabbed through the stab incision. The balloon was inflated on the mesh. Circumferential tacks were placed with a SecureStrap Tacker. The balloon was then removed and inner crown was created as well. The mesh was tacked with pressure being decreased. The 12 mm fascial defect was then closed using 0 Vicryl. The abdomen was then desufflated,the trocars were removed. The skin was then closed using 4-0 Monocryl in a subcuticular fashion. The abdomen was washed and dried and Skin Affix was placed over the incisions. The patient tolerated procedure well without any complications. She was taken to recovery room in stable condition. Dr. Helm assisted on this case helping to make incisions, close incisions, identify anatomy and hold anatomy out of the way. Anesthesia Type GET Estimated Blood Loss Estimated blood loss (mL): scant Specimens/Packing Specimens Removed none JEFF KNIGHT DO Sep 11, 2022 12:27
[2022-09-11] MEDS ORDERED: HYDROcodone/APAP 5 MG/325 MG (LORTAB) TAB ONE (13:21)
[2022-09-11] MEDS ORDERED: HYDROcodone/APAP 5 MG/325 MG (LORTAB) TAB PO ONE (13:30)
[2022-09-14] MEDS ORDERED: ACHYD1T PO (15:14)
== END 2022-09-11 13:50 | disposition home or self-care (01) ==
LOC: SDC 08:13
PROVIDERS: ATTEND Surgery
DX: K42.0 Umbilical hernia with obstruction, without gangrene (principal); E66.9 Obesity, unspecified; F17.210 Nicotine dependence, cigarettes, uncomplicated; Z68.24 Body mass index [BMI] 24.0-24.9, adult
CPT/HCPCS: 49653; 84703; 87081; C1781

== ENCOUNTER → 2022-11-20 | Outpatient (CLI) | payer MEDICAID ==
[~2022-11-20] MED LIST changes: +ACHYD1T PO
--- NOTE | 2022-11-20 16:07 | Diagnostic Imaging Report ---
PROCEDURE: US Non-OB pelvis comp/trans. TECHNIQUE: Multiple real-time grayscale images were obtained of the pelvis in various projections endovaginally. Transabdominal imaging was also performed. INDICATION: Dysfunctional uterine bleeding. FINDINGS: There is an intrauterine device in good position. No evidence for embedding or myometrial perforation. No fibroid or myometrial mass. The endometrium is 5.9 mm thick and appeared unremarkable. Right ovary contains a 2.6 cm cystic structure, believed to reflect a dominant follicle and showed no complexity. No suspicious adnexal lesion. The left ovary is normal. There is normal color Doppler blood flow to the bilateral adnexa. No evidence for torsion. There is no free fluid. IMPRESSION: Likely dominant right ovarian follicular cyst. IUD in good position with no pathological finding identified. Dictated by: Dictated on workstation # [id number]
== END ==
LOC: RAD 14:33
PROVIDERS: ATTEND Obstetrics & Gynecology
DX: N93.9 Abnormal uterine and vaginal bleeding, unspecified (principal); Z97.5 Presence of (intrauterine) contraceptive device
CPT/HCPCS: 76830; 76856

== ENCOUNTER 2023-02-16 05:28 | Outpatient (CLI) | payer MEDICAID ==
[~2023-02-16] VITALS: Ht 167.7 cm; Wt 72.1 kg
== END 2023-02-16 13:25 | disposition home or self-care (01) ==
LOC: PREOP 05:28
PROVIDERS: ATTEND Obstetrics & Gynecology
DX: Z01.818 Encounter for other preprocedural examination (principal)

== ENCOUNTER 2023-02-23 06:57 | Day surgery (SDC) | payer MEDICAID ==
[~2023-02-23] VITALS: Ht 167.7 cm; Wt 72.1 kg
[2023-02-23] VITALS (13 sets, daily range): BP systolic 122–140; BP diastolic 78–95
[2023-02-23] MEDS ORDERED: ceFAZolin INJECTION 2,000 MG in NS (IVPB) 50 ML IV ONE (07:15)
[2023-02-23] MEDS ORDERED: metroNIDAZOLE 500MG/100ML IVPB 100 ML IV ONE (07:15)
[2023-02-23] MEDS ORDERED: BUPIVACAINE 0.25% 30 ML (SENSORCAINE) VIAL ONE (07:23)
--- NOTE | 2023-02-23 07:37 | Progress Note-Pre Operative ---
Pre-Operative Progress Note Date of Available H&P: Feb 23, 2023 Date H&P Reviewed: Feb 23, 2023 Time H&P Reviewed: 07:37 History & Physical: H&P Reviewed, Patient Examed, No changes noted Pre-Operative Diagnosis: POP, Menorrhagia, CPP, Dyspareunia REBECCA GARCIA DO Feb 23, 2023 07:37
--- NOTE | 2023-02-23 07:39 | Discharge Inst-Women's Service ---
Discharge Inst-Women's Serv Depart Medication/Instructions New, Converted or Re-Newed RX: Transmitted to Pharmacy Problems Reviewed?: Yes Consults/Follow Up Additional Follow Up: Yes Orders/Referrals Dr. Castro in 7-10 days and in 8 weeks Activity Activity: Activity as Tolerated Driving Instructions: No Driving for 1 Week NO SMOKING: NO SMOKING Nothing Inside Vagina: No Douching, No [place], No Tampons Diet Discharge Diet: No Restrictions Symptoms to Report to : Bleeding Excessive, Pain Increased, Fever Over 101 Degrees F, Vaginal Bleeding Increase, Questions/Concerns For Any Problems or Questions: Contact Your Physician Skin/Wound Care Infection Signs and Symptoms: Increased Redness, Foul Odor of Wound, Increased Drainage, Skin Itchy or Has a Rash, Increased Swelling, Temperature Above 101 F Operative Area Clean and Dry: Keep Incision Clean/Dry Stitches/Vera/Dermabond: Dermabond, Care of Stitches Bathing Instructions: REBECCA Payne DO Feb 23, 2023 07:39
[2023-02-23] MEDS ORDERED: HYDR-34 PO (07:41)
[2023-02-23] MEDS ORDERED: SIME80TA16 PO (07:41)
[2023-02-23] MEDS ORDERED: DOCU100C37 PO (07:41)
[2023-02-23] MEDS ORDERED: IBUP-844 PO (07:41)
[2023-02-23] MEDS ORDERED: LACTATED RINGERS 1,000 ML IV SCH (07:45)
[2023-02-23] MEDS ORDERED: BENZOCAINE LOZENGES 1 EACH LOZENGE MM PRN (07:45)
[2023-02-23] MEDS ORDERED: ZOLPIDEM 5 MG (AMBIEN) TAB PO PRN (07:45)
[2023-02-23] MEDS ORDERED: ANTACID SUSP 30 ML UDC (MYLANTA) PO PRN (07:45)
[2023-02-23] MEDS ORDERED: SIMETHICONE 80 MG (MYLICON) CHEW PO PRN (07:45)
[2023-02-23] MEDS ORDERED: DOCUSATE SODIUM 100 MG (COLACE) CAP PO PRN (07:45)
[2023-02-23] MEDS ORDERED: ONDANSETRON 4 MG/2 ML (SDV) Z0FRAN IV PRN (07:45)
[2023-02-23] MEDS ORDERED: FAMOTIDINE 20MG/2ML IV (PEPCID) IV ONE (08:00)
[2023-02-23] MEDS ORDERED: HYDROmorphone 2 MG/ML VIAL (DILAUDID) IV ONE (08:00)
[2023-02-23] MEDS ORDERED: MIDAZOLAM 2 MG/2 ML (VERSED) VIAL IV ONE (08:00)
[2023-02-23] MEDS ORDERED: SCOPOLAMINE 1.5 MG (TRANSDERM-SCOP) PATCH TOP ONE (08:00)
[2023-02-23] MEDS ORDERED: ONDANSETRON 4 MG/2 ML (SDV) Z0FRAN IV ONE (08:00)
[2023-02-23] MEDS ORDERED: ONDANSETRON 4 MG/2 ML (SDV) Z0FRAN IVP PRN (08:00)
[2023-02-23] MEDS ORDERED: morphine INJ 10 MG/ML 1ML (SYR OR VIAL) IVP ONE (08:00)
[2023-02-23] MEDS ORDERED: fentaNYL INJ 100 MCG/2 ML AMP ONE (08:01)
[2023-02-23] MEDS ORDERED: LIDOCAINE PF 2% 5 ML (XYLOCAINE) VIAL ONE (08:01)
[2023-02-23] MEDS ORDERED: GLYCOPYRROLATE 0.2 MG/ML (ROBINUL) 2 ML VIAL ONE (08:01)
[2023-02-23] MEDS ORDERED: ONDANSETRON 4 MG/2 ML (SDV) Z0FRAN ONE ×2 (08:01→08:02)
[2023-02-23] MEDS ORDERED: proPOfol 200 MG/20 ML (DIPRIVAN) VIAL IV ONE (08:01)
[2023-02-23] MEDS ORDERED: ROCURONIUM 50 MG/5 ML (ZEMURON) VIAL IV ONE (08:02)
[2023-02-23] MEDS ORDERED: FAMOTIDINE 20MG/2ML IV (PEPCID) ONE (08:02)
[2023-02-23] MEDS ORDERED: NEOSTIGMINE (BLOXIVERZ ) 1 MG/1ML 10 ML VIAL ONE (08:02)
[2023-02-23] MEDS ORDERED: MIDAZOLAM 2 MG/2 ML (VERSED) VIAL ONE (08:03)
[2023-02-23] MEDS ORDERED: SCOPOLAMINE 1.5 MG (TRANSDERM-SCOP) PATCH ONE (08:03)
[2023-02-23 08:04] LABS: BASOPHILS # (AUTO) 0.1 10^3/uL (0.0-0.1); BASOPHILS % (AUTO) 1 % (0-10); EOSINOPHILS # (AUTO) 0.2 10^3/uL (0.0-0.3); EOSINOPHILS % (AUTO) 2 % (0-10); HEMATOCRIT 46 % (35-52); HEMOGLOBIN 15.5 g/dL (11.5-16.0); LYMPHOCYTES # (AUTO) 3.5 10^3/uL (1.0-4.0); LYMPHOCYTES % (AUTO) 45 % (12-44); MEAN CORPUSCULAR HEMOGLOBIN 31 pg (25-34); MEAN CORPUSCULAR HGB CONC 34 g/dL (32-36); MEAN CORPUSCULAR VOLUME 90 fL (80-99); MEAN PLATELET VOLUME 10.4 fL (9.0-12.2); MONOCYTES # (AUTO) 0.5 10^3/uL (0.0-1.0); MONOCYTES % (AUTO) 6 % (0-12); NEUTROPHILS # (AUTO) 3.6 10^3/uL (1.8-7.8); NEUTROPHILS % (AUTO) 46 % (42-75); PLATELET COUNT 242 10^3/uL (130-400); WHITE BLOOD COUNT 7.8 10^3/uL (4.3-11.0)
[2023-02-23] MEDS: LACTATED RINGERS 1,000 ML IV PRN ×2 (08:10→08:54)
[2023-02-23] MEDS ORDERED: BUPIVACAINE 0.25% 30 ML (SENSORCAINE) VIAL INJ ONE (09:03)
[2023-02-23] MEDS ORDERED: HYDROmorphone 2 MG/ML VIAL (DILAUDID) ONE (09:43)
[2023-02-23] MEDS ORDERED: SEVOFLURANE (ULTANE) 15 ML INHAL SOLN ONE (10:09)
[2023-02-23] MEDS ORDERED: KETOROLAC 30 MG/ML VIAL ONE (10:20)
[2023-02-23] MEDS: KETOROLAC 30 MG/ML VIAL IVP PRN ×2 (10:23→16:42)
[2023-02-23] MEDS ORDERED: HYDROmorphone 2 MG/ML VIAL (DILAUDID) IV PRN (10:30)
[2023-02-23] MEDS ORDERED: morphine INJ 10 MG/ML 1ML (SYR OR VIAL) ONE (10:39)
--- NOTE | 2023-02-23 11:08 | Anesthesia-General Post-Op ---
General Patient Condition Mental Status/LOC: Same as Preop Cardiovascular: Satisfactory Nausea/Vomiting: Absent Respiratory: Satisfactory Pain: Controlled Complications: Absent Post Op Complications Complications None Follow Up Care/Instructions Patient Instructions None needed. Anesthesia/Patient Condition Patient Condition Patient was just transferred from the PACU to the third floor and she was doing well, no complaints, stable vital signs, no apparent adverse anesthesia problems. No complications reported per nursing. GENIE HAMM DO Feb 23, 2023 11:08
[2023-02-23] MEDS ORDERED: IBUPROFEN 600 MG (MOTRIN) TAB PO SCH (12:00)
[2023-02-23] MEDS: HYDROcodone/APAP 7.5 MG/325 MG (LORTAB, LORCET PLUS) TABLET PO PRN ×2 (13:16→14:50)
--- NOTE | 2023-02-23 20:10 | OPERATIVE REPORT ---
DATE OF SERVICE: 02/23/2023 PREOPERATIVE DIAGNOSES: 1. A 32-year-old female with chronic pelvic pressure. 2. Pelvic organ prolapse. 3. Menorrhagia. 4. Dyspareunia. POSTOPERATIVE DIAGNOSES: 1. A 32-year-old female with chronic pelvic pressure. 2. Pelvic organ prolapse. 3. Menorrhagia. 4. Dyspareunia. PROCEDURE: Robotic-assisted total laparoscopic hysterectomy. SURGEON: Rommel Castro DO EMU FARMER: Yesi Riddle DNP, who was necessary for manipulation and retraction throughout the procedure. ANESTHESIA: General endotracheal. ESTIMATED BLOOD LOSS: Minimal. URINE OUTPUT: 50 mL clear at the end of the procedure. FLUIDS: 1500 mL lactated Ringer's solution. FINDINGS: Grossly normal-appearing uterus with normal-appearing ovaries, surface tissue appearing to have some possible serosal endometriosis. Grossly normal appearing upper abdominal anatomy, normal-appearing external female genitalia, normal-appearing vagina and cervix. SPECIMEN SENT: Uterus. INDICATIONS FOR PROCEDURE: This 32-year-old female is the patient who had sought care in my office for ongoing issues with chronic pelvic pressure, discomfort and pain with intercourse. She has undergone more conservative measures in the past including an IUD placement which was currently placed at the time of the procedure. She wished to proceed with more definitive measures as she did not desire any further childbearing and already undergone tubal sterilization. Risks of the procedure were discussed with the patient in detail including risk of bleeding, infection, damage to surrounding structures including but not limited to bowel, bladder, ureter, kidneys, possible need for reoperation, postoperative complications that may occur, recovery timeframe, risk from anesthesia and even . After everything was discussed with the patient in detail, consent was obtained, the patient was taken to the operating room. OPERATIVE REPORT IN DETAIL: Once in the operating room, anesthesia was found to be adequate. She was placed in dorsal lithotomy position, prepped and draped in the normal sterile fashion. A timeout was performed. A Myers catheter was placed. A weighted speculum was inserted to the patient's vagina. Right angle retractor was used to visualize the cervix, which was grasped at 12 o'clock position using a long Allis clamp. I then placed an 0 Vicryl suture at the anterior lip of the cervix, the Vicryl suture as my retraction on the cervix. I then gently sound the uterine cavity, depth was found to be 8 cm. I selected an 8 cm SARAH uterine manipulator tip and a 3.5 cm colpotomy ring. I advanced the manipulator tip into the uterus where I deployed the balloon and advanced the colpotomy ring around the vaginal fornix. Excellent bimanual manipulation is appreciated at that point. I then performed a change of gloves. I turned my attention to the abdomen where subcostally at the midclavicular line, I introduced the Veress needle until intraperitoneal placement was confirmed using saline drop test. An opening pressure of 3 mmHg. was noted. I proceeded to max pressure of 15 mmHg using CO2 gas, at which point, I make an 8 mm infraumbilical trocar incision with a knife and direct an 8 mm blunt da Sukhdev laparoscope through the incision until intraperitoneal placement was confirmed using da Sukhdev laparoscope. There was no evidence of damage upon entry. A brief scan of the upper abdominal anatomy appears to be grossly normal without evidence of damage. The Veress needle was removed at that point. I then had the patient placed in steep Trendelenburg where I am able to visualize all my pelvic anatomy as defined in my findings above. I placed two lateral trocars using both 8 mm trocars approximately 10 cm lateral to my infraumbilical trocar. Once both of these trocars were in place under direct visualization of laparoscope, I bring in the da Sukhdev robot and docked in appropriate fashion, placing the SynchroSeal device in the left hand and monopolar aroldo in the right hand. I took my place at the operative console and performed the following dissection bilaterally. Starting at the uteroovarian ligament, I sealed and transected this using a SynchroSeal device and then grasped the round ligament, which I sealed and transected using a SynchroSeal device. This allows me to grasp the entirety of the broad ligament, which I sealed and transected using the SynchroSeal device. I do this down to the level of the lower uterine segment, at which point I the anterior and posterior leaflets of the broad ligament. The anterior leaflet dissection was taken around the anterior vaginal fornix. The posterior leaflet was taken around the posterior vaginal fornix. This allows me to skeletonize the uterine vessels laterally, which I sealed and transected using the SynchroSeal device. I then created a colpotomy at 12 o'clock position using monopolar aroldo and took this circumferentially around the vaginal fornix amputating the cervix away from the vagina. The entire specimen was then removed through the vagina. I then closed the vaginal cuff using 2-0 Vicryl suture in a running fashion, after which there was active bleeding noted from any of my dissection planes. I then undocked da Sukhdev robot and proceeded with remainder of the case laparoscopically. I copiously irrigated the pelvis with normal saline. Once again, there was no active bleeding noted from any of my dissection planes. I covered the planes of dissection using Surgiflo hemostatic agent. I had the patient taken out of steep Trendelenburg where I removed the lateral trocars under direct visualization of laparoscope. The infraumbilical trocars left in place to release the remainder of insufflation and introduced 10 mL of 0.25% Marcaine in peritoneal cavity for postoperative pain management, then removed this trocar as well. The skin was reapproximated using 4-0 Monocryl and interrupted subcuticular stitches. Dermabond was applied to incision and Band-Aids were placed over the incisions as well. Myers catheter was left in place. The patient tolerated the procedure well and was taken to recovery area in stable condition. Lap and sponge count was correct at the end of the procedure. Instrument counts correct as well. Two grams of Ancef, 500 mg of Flagyl were given preoperatively for infection prophylaxis. Job ID: [id number] DocumentID: [id number] Dictated Date: 02/23/2023 12:44:49 Accounting Support Specialist Date: 02/23/2023 20:08:00 Dictated By: DO LUIS SIDDIQI
== END 2023-02-23 18:00 | disposition home or self-care (01) ==
LOC: SDC 06:57 → WS 11:10 → SDC 18:00
PROVIDERS: ATTEND Obstetrics & Gynecology
DX: N83.8 Other noninflammatory disorders of ovary, fallopian tube and broad ligament (principal); G89.29 Other chronic pain; N92.0 Excessive and frequent menstruation with regular cycle; N94.10 Unspecified dyspareunia; N81.9 Female genital prolapse, unspecified; F17.210 Nicotine dependence, cigarettes, uncomplicated
CPT/HCPCS: 36415; 84703; 85025; 86850; 86900; 86901; 87081

== ENCOUNTER 2023-03-13 12:30 | Emergency (ER) | payer MEDICAID ==
[~2023-03-13] VITALS: Ht 170.2 cm; Wt 71.7 kg
[~2023-03-13 12:30] MED LIST changes: +HYDR-34 PO; +SIME80TA16 PO
--- NOTE | 2023-03-13 13:01 | ED GU-Female ---
General Chief Complaint: Post OP Complications/Pain Stated Complaint: POST OP HYSTERECTOMY/VAG BLEEDING Source: patient Exam Limitations: no limitations History of Present Illness Date Seen by Provider: Mar 13, 2023 Time Seen by Provider: 12:58 Initial Comments Patient is a 32-year-old female who presents to the ED with vaginal bleeding. Patient states she had a hysterectomy performed by Dr. Garcia on February 23. She states they removed everything besides her ovaries. She had no postop complications until early this morning around 6 AM. She states she woke up with some lower pelvic cramping and noted bright red blood after urinating and wiping. She had 2 other similar episodes that were bright red blood with mixed dark blood with wiping and in the bowl of the toilet. She reports a burning sensation around her vaginal area. No pain with urination, fever, chills, nausea, vomiting, diarrhea, chest pain, shortness of breath, cough. Not concern for sexual transmitted infection. Allergies and Home Medications Allergies Coded Allergies: No Known Drug Allergies (Unverified , 02/16/23) Patient Home Medication List Home Medication List Reviewed: Yes Docusate Sodium (Docusate Sodium) 100 Mg Capsule, 100 MG PO BID PRN for CONSTIPATION-1ST LINE Prescribed by: REBECCA GARCIA on 02/23/23 0741 Hydrocodone Bit/Acetaminophen (HYDROcodone/APAP 7.5/325 TAB) 1 Ea Tablet, 1-2 EA PO Q6HR PRN for PAIN-MODERATE (5-7) Prescribed by: REBECCA GARCIA on 02/23/23 0741 Ibuprofen (Ibu) 600 Mg Tablet, 600 MG PO Q6HR Prescribed by: REBECCA GARCIA on 02/23/23 0741 Simethicone (Simethicone) 80 Mg Tab.chew, 40 MG PO TID PRN for INDIGESTION 2ND LINE Prescribed by: REBECCA GARCIA on 02/23/23 0741 Review of Systems Review of Systems Constitutional: No chills, No diaphoresis, No malaise, No weakness EENTM: No ear pain, No blurred vision, No double vision Respiratory: No cough, No short of breath, No wheezing Cardiovascular: No chest pain Gastrointestinal: abdominal pain; No diarrhea, No nausea, No vomiting Genitourinary: burning; denies discharge, denies dysuria Musculoskeletal: No back pain, No joint pain Skin: No change in color, No change in hair/nails All Other Systemes Reviewed Negative Unless Noted: Yes Past Pkqtysd-Hnnibs-Wfhrwt Hx Patient Social History Tobacco Use?: Yes Tobacco type used: Cigarettes Smoking Status: Heavy Tobacco Smoker Smokeless Tobacco Frequency: Never a User Use of E-Cig and/or Vaping dev: No Use of E-Cig and/or Vaping Mic: Never a User Substance use?: No Alcohol Use?: Yes Alcohol Frequency: Couple times a week Pt feels they are or have been: No Immunizations Up To Date First/Initial COVID19 Vaccinat: 2020 Second COVID19 Vaccination Surinder: 2020 Third COVID19 Vaccination Date: yes Seasonal Allergies Seasonal Allergies: No Past Medical History Surgery/Hospitalization HX: Breast augmentation, T&A, knee surgery, previous 3 kidney stents, pilondial cyst, section Surgeries: Yes (C SECTION X1, HERNIA REPAIR, KIDNEY STONES , EGD/COLO) Orthopedic, Tonsillectomy, Tubal Ligation Respiratory: No Currently Using CPAP: No Currently Using BIPAP: No Cardiac: No ( induced hypertension) Hypertension Neurological: No Female Reproductive Disorders: Menstrual Problems TITRATOR History: Tubal Ligation Sexually Transmitted Disease: No HIV/AIDS: No Genitourinary: Yes (URINARY STENTS AND TEMPORARY R NEPHROSTOMY TUBE WITH KIDNEY STONES) Kidney Infection, Kidney Stones, UTI-Chronic Gastrointestinal: Yes (umbilcal hernia) Gastroesophageal Reflux, Chronic Diarrhea Musculoskeletal: Yes Back Injury Endocrine: No HEENT: No (GLASSES) Loss of Vision: Denies Hearing Impairment: Denies Cancer: No Psychosocial: Yes Anxiety Integumentary: No Blood Disorders: No Adverse Reaction/Blood Tranf: No (N/A) Family Medical History Patient reports no known family medical history. No Pertinent Family Hx Physical Exam Vital Signs Vital Signs - First Documented 03/13/23 12:44 Temp 36.3 Pulse 84 Resp 17 B/P (MAP) 137/97 (110) O2 Delivery Room Air Capillary Refill : Height, Weight, BMI Height: '" Weight: lbs. oz. kg; 25.63 BMI Method: General Appearance: WD/WN, no apparent distress HEENT: PERRL/EOMI, normal ENT inspection, TMs normal, pharynx normal Neck: non-tender, full range of motion, supple, normal inspection Cardiovascular: regular rate, rhythm, no edema, no gallop, no JVD Respiratory: chest non-tender, lungs clear, normal breath sounds, no respiratory distress, no accessory muscle use Gastrointestinal: normal bowel sounds, non tender, soft, no organomegaly Pelvic: normal external exam, other (Dried blood noted in the vaginal canal. Tenderness during exam. No significant vaginal wall erythema, purulent drainage. No odor. No vaginal tenderness.) Back: normal inspection, no CVA tenderness, no vertebral tenderness Extremities: normal range of motion, non-tender, normal inspection, no pedal edema, no calf tenderness Neurologic/Psychiatric: manuscripts archivist II-XII nml as tested, no motor/sensory deficits, alert, normal mood/affect, oriented x 3 Skin: normal color Progress/Results/Core Measures Suspected Sepsis SIRS Temperature: Pulse: Respiratory Rate: Laboratory Tests 03/13/23 13:06: White Blood Count 7.4 Blood Pressure / Mean: Laboratory Tests 03/13/23 13:06: Creatinine 0.72, Platelet Count 254, Total Bilirubin 0.7 Results/Orders Lab Results Laboratory Tests Test 03/13/23 13:06 03/13/23 13:16 03/13/23 13:25 Range/Units White Blood Count 7.4 4.3-11.0 10^3/uL Red Blood Count 4.89 3.80-5.11 10^6/uL Hemoglobin 15.0 11.5-16.0 g/dL Hematocrit 44 35-52 % Mean Corpuscular Volume 89 80-99 fL Mean Corpuscular Hemoglobin 31 25-34 pg Mean Corpuscular Hemoglobin Concent 35 32-36 g/dL Red Cell Distribution Width 13.1 10.0-14.5 % Platelet Count 254 130-400 10^3/uL Mean Platelet Volume 10.2 9.0-12.2 fL Immature Granulocyte % (Auto) 0 % Neutrophils (%) (Auto) 47 42-75 % Lymphocytes (%) (Auto) 44 12-44 % Monocytes (%) (Auto) 6 0-12 % Eosinophils (%) (Auto) 2 0-10 % Basophils (%) (Auto) 1 0-10 % Neutrophils # (Auto) 3.5 1.8-7.8 10^3/uL Lymphocytes # (Auto) 3.2 1.0-4.0 10^3/uL Monocytes # (Auto) 0.5 0.0-1.0 10^3/uL Eosinophils # (Auto) 0.2 0.0-0.3 10^3/uL Basophils # (Auto) 0.1 0.0-0.1 10^3/uL Immature Granulocyte # (Auto) 0.0 0.0-0.1 10^3/uL Sodium Level 142 135-145 MMOL/L Potassium Level 4.5 3.6-5.0 MMOL/L Chloride Level 111 H 98-107 MMOL/L Carbon Dioxide Level 21 21-32 MMOL/L Anion Gap 10 5-14 MMOL/L Blood Urea Nitrogen 16 7-18 MG/DL Creatinine 0.72 0.60-1.30 MG/DL Estimat Glomerular Filtration Rate 113 BUN/Creatinine Ratio 22 Glucose Level 85 70-105 MG/DL Calcium Level 9.4 8.5-10.1 MG/DL Corrected Calcium 9.2 8.5-10.1 MG/DL Total Bilirubin 0.7 0.1-1.0 MG/DL Aspartate Amino Transf (AST/SGOT) 12 5-34 U/L Alanine Aminotransferase (ALT/SGPT) 12 0-55 U/L Alkaline Phosphatase 53 40-136 U/L Total Protein 6.6 6.4-8.2 GM/DL Albumin 4.3 3.2-4.5 GM/DL Urine Color YELLOW Urine Clarity SL CLOUDY Urine pH 6.0 5-9 Urine Specific [place] 1.025 H 1.016-1.022 Urine Protein NEGATIVE NEGATIVE Urine Glucose (UA) NEGATIVE NEGATIVE Urine Ketones NEGATIVE NEGATIVE Urine Nitrite NEGATIVE NEGATIVE Urine Bilirubin NEGATIVE NEGATIVE Urine Urobilinogen 0.2 < = 1.0 MG/DL Urine Leukocyte Esterase NEGATIVE NEGATIVE Urine RBC (Auto) NEGATIVE NEGATIVE Urine RBC RARE /HPF Urine WBC NONE /HPF Urine Squamous Epithelial Cells RARE /HPF Urine Crystals NONE /LPF Urine Bacteria TRACE /HPF Urine Casts NONE /LPF Urine Mucus NEGATIVE /LPF Urine Culture Indicated NO Micro Results Microbiology 03/13/23 Wet Prep - Final, Complete My Orders Orders - GORDO HERRERA Cbc With Automated Diff (03/13/23 12:50) Comprehensive Metabolic Panel (03/13/23 12:50) Ua Culture If Indicated (03/13/23 12:50) Wet Prep (03/13/23 12:57) Neisseria Gonorrhea Swab (03/13/23 13:01) Chlamydia Trachomatis Swab (03/13/23 13:01) Vital Signs/I&O 03/13/23 12:44 Temp 36.3 Pulse 84 Resp 17 B/P (MAP) 137/97 (110) O2 Delivery Room Air Capillary Refill : Departure Communication (PCP) Patient is a 32-year-old female presents ED with vaginal bleeding. Vaginal ble eding started early this morning. She noted bright red blood and clots with urination and wiping. She states she noted some redness of the bowl of the toilet. Denies of any profuse bleeding. Denies abdominal pain, fever. She had a robotic assisted laparoscopic hysterectomy performed by Dr. Garcia February 25. She still does have her ovaries. She denies of any complication post surgery such as bleeding until today. On arrival no evidence of acute abdomen. Afebrile. Due to current complaint CBC, CMP, pelvic exam with urinalysis. Urinalysis was negative for infection. CBC showed normal white blood count and hemoglobin. Chemistry grossly unremarkable. Pelvic exam noted blood clots around the surgical site. No active bleeding. No evidence of hernia bowel. Does not appear open. Exam was tender and painful for patient. Healing surgical scars from the laparoscopy. Soft abdomen. Wet mount positive for clue cells and white blood cells negative for yeast. Not concern for STD. Patient without any active bleeding at this time. Patient denies of any sexual intercourse or foreign body. Discussed patient with Dr. Conway PLANT AND MAINTENANCE TECHNICIAN on- call recommended that patient follow-up outpatient with Dr. Garcia next week. Reviewed the lab work, exam that I performed and suggest no surgical intervention at this time. Continue monitoring bleeding. If profuse bleeding going through 3 pads in a hour to return back to ED. No sexual intercourse or foreign body in the next 6 weeks. Could be secondary to granulation tissue causing bleeding near the surgical site. Impression Primary Impression: Vaginal bleeding Disposition: HOME, SELF-CARE Condition: Stable Departure-Patient Inst. Decision time for Depature: 14:15 Referrals: [facility] (PCP/Family) Primary Care Physician Patient Instructions: IRREGULAR VAGINAL BLEEDING Add. Discharge Instructions: Continue monitoring symptoms. If profuse bleeding going through 3 pads an hour recommend returning back to ED. No sexual intercourse or foreign body over the next 6 weeks. Follow-up with Dr. Garcia early next week for further evaluation. GORDO HERRERA Mar 13, 2023 13:01
[2023-03-13 13:13] LABS: BASOPHILS # (AUTO) 0.1 10^3/uL (0.0-0.1); BASOPHILS % (AUTO) 1 % (0-10); EOSINOPHILS # (AUTO) 0.2 10^3/uL (0.0-0.3); EOSINOPHILS % (AUTO) 2 % (0-10); HEMATOCRIT 44 % (35-52); LYMPHOCYTES # (AUTO) 3.2 10^3/uL (1.0-4.0); LYMPHOCYTES % (AUTO) 44 % (12-44); MEAN CORPUSCULAR HEMOGLOBIN 31 pg (25-34); MEAN CORPUSCULAR HGB CONC 35 g/dL (32-36); MEAN CORPUSCULAR VOLUME 89 fL (80-99); MEAN PLATELET VOLUME 10.2 fL (9.0-12.2); MONOCYTES # (AUTO) 0.5 10^3/uL (0.0-1.0); MONOCYTES % (AUTO) 6 % (0-12); NEUTROPHILS # (AUTO) 3.5 10^3/uL (1.8-7.8); NEUTROPHILS % (AUTO) 47 % (42-75); PLATELET COUNT 254 10^3/uL (130-400); WHITE BLOOD COUNT 7.4 10^3/uL (4.3-11.0)
[2023-03-13 13:20] LABS: ALBUMIN 4.3 GM/DL (3.2-4.5); POTASSIUM 4.5 MMOL/L (3.6-5.0)
[2023-03-13 13:22] LABS: CALCIUM 9.4 MG/DL (8.5-10.1)
[2023-03-13 13:23] LABS: TOTAL PROTEIN 6.6 GM/DL (6.4-8.2)
[2023-03-13 13:25] LABS: BILIRUBIN,TOTAL 0.7 MG/DL (0.1-1.0)
[2023-03-13 13:26] LABS: CREATININE SERUM 0.72 MG/DL (0.60-1.30)
[2023-03-13 13:32] LABS: BILIRUBIN,URINE NEGATIVE (NEGATIVE); CLARITY,URINE SL CLOUDY; COLOR,URINE YELLOW; GLUCOSE, URINE (UA) NEGATIVE (NEGATIVE); KETONES,URINE NEGATIVE (NEGATIVE); LEUKOCYTE ESTERASE ,URINE NEGATIVE (NEGATIVE); NITRITE,URINE NEGATIVE (NEGATIVE); PROTEIN,URINE NEGATIVE (NEGATIVE)
[2023-03-13 13:54] LABS: BACTERIA,URINE TRACE /HPF; RBC,URINE RARE /HPF; SQUAMOUS EPITHELIAL CELL,UR RARE /HPF
[2023-03-13 14:26] VITALS: BP 133/82
== END 2023-03-13 14:27 | disposition home or self-care (01) ==
LOC: EDUNIT# 12:30 → ER 12:33
DX: N93.9 Abnormal uterine and vaginal bleeding, unspecified (principal); F17.210 Nicotine dependence, cigarettes, uncomplicated; Z90.710 Acquired absence of both cervix and uterus
CPT/HCPCS: 36415; 80053; 81000; 85025; 87210; 87491; 87591